=== PATIENT | male | born 1950 | race Caucasian/White ===

== ENCOUNTER 2018-03-26 08:15 | Outpatient (RCR) | payer MEDICARE, OTHER, SELFPAY | END 2018-04-09 11:31 | LOC: PUL 08:15 | PROVIDERS: PCP Family Medicine; Visit Provider Internal Medicine Critical Care Medicine | DX: J44.9 Chronic obstructive pulmonary disease, unspecified (principal) | CPT/HCPCS: G0424 ==

== ENCOUNTER 2018-05-05 12:47 | Emergency (ER) | payer MEDICARE, OTHER, SELFPAY ==
[2018-05-05] VITALS (8 sets, daily range): BP systolic 105–149; BP diastolic 67–87; PULSE 70–82; RESP 14–20; TEMP 36.8; O2SAT 96–100; BMI 34.9
--- NOTE | 2018-05-05 14:00 | ED.SOB ---
HPI - SOB/Dyspnea General Chief Complaint: Shortness of Breath/Dyspnea Stated Complaint: STATES, FEELS A PAIN IN HIS LUNGS,SOB Time Seen by Provider: 05/05/18 12:59 Source: patient and family Mode of arrival: ambulatory Limitations: no limitations History of Present Illness 68-year-old male with history of surgery with prolonged hospitalization and subsequent PE at our review presents to the emergency department with an odd feeling in his lungs and some pain on his right anterior chest. The pain started suddenly on Saturday when he was working underneath a car and reached for an object. He denies cardiac equivalent such as dizziness, weakness or lightheadedness. After his PE a year ago the patient was on anticoagulants for 3 months. He had an knee surgery in early March and had been on anticoagulation again but stopped that 10 days ago. He denies any fever or chills MD Complaint: cough, pain with inspiration and chest pain Onset (ago): day(s) Context: recent illness, occurred during exertion and trauma/injury Severity: moderate Consistency/Duration: constant Relieving factors: rest Exacerbating factors: movement, coughing, inspiration and deep breaths Known history of: PE Related Data Home Medications Medication Instructions Recorded Confirmed albuterol sulfate 2 puff INHALATION Q4-6H PRN 03/25/18 05/05/18 amlodipine 5 mg PO DAILY 03/25/18 05/05/18 finasteride 5 mg PO DAILY 03/25/18 05/05/18 hydrochlorothiazide 25 mg PO DAILY 03/25/18 05/05/18 lisinopril 10 mg PO DAILY 03/25/18 05/05/18 tiotropium bromide [Spiriva with 1 cap INHALATION DAILY 03/25/18 05/05/18 HandiHaler] aspirin 81 mg PO DAILY 05/05/18 05/05/18 loratadine 10 mg PO DAILY 05/05/18 05/05/18 omeprazole 20 mg PO DAILY 05/05/18 05/05/18 Previous Rx's Medication Instructions Recorded levofloxacin [Levaquin] 750 mg PO Q24H #6 tab 05/05/18 Allergies Allergy/AdvReac Type Severity Reaction Status Date / Time No Known Drug Allergies Allergy Verified 03/25/18 10:51 Review of Systems Review of Systems All systems reviewed & are unremarkable except as noted in HPI and below Constitutional Denies chills, Denies fever(s), Denies lethargy and Denies weakness Eyes Denies change in vision, Denies eye discharge, Denies irritation and Denies loss of vision ENT Ears, Nose, Mouth, and Throat: Denies change in voice, Denies neck pain and Denies sore throat Cardiovascular Denies chest pain, Denies irregular heart rhythm, Denies lightheadedness, Denies palpitations, Denies dyspnea, Denies dyspnea on exertion and Denies orthopnea Respiratory Denies cough, Reports pain on inspiration, Reports pain with cough, Denies dyspnea, Denies dyspnea on exertion and Denies wheezing Gastrointestinal Gastrointestinal: Denies abdominal pain, Denies change in bowel habits, Denies diarrhea, Denies nausea and Denies vomiting Genitourinary Denies hematuria, Denies flank pain, Denies urinary incontinence and Denies urinary urgency Musculoskeletal Denies neck pain Integumentary/Breasts Denies pruritus, Denies erythema, Denies rash and Denies wounds Neurologic Denies confusion, Denies loss of vision and Denies weakness Psychiatric Denies anxiety, Denies confusion, Denies depression, Denies homicidal ideation and Denies suicidal ideation Endocrine Denies palpitations Hematologic/Lymphatic Denies easy bruising Allergic/Immunologic Denies wheezing [facility] Medical History COPD (chronic obstructive pulmonary disease) (Acute) HTN (hypertension) (Acute) SAMUEL (obstructive sleep apnea) (Acute) Pneumonia (Acute) Pulmonary embolism (Acute) Upper respiratory infection (Acute) Surgical History H/O cervical spine surgery (Acute) Hx of tonsillectomy (Acute) Hx of total knee arthroplasty (Acute) Social History household members: spouse Smoking Status: Former smoker Exam Narrative Exam Narrative: 68-year-old male resting comfortably in no obvious distress Initial Vital Signs Initial Vital Signs: Vital Signs Temperature 98.2 F 05/05/18 13:10 Pulse Rate 82 05/05/18 13:10 Respiratory Rate 20 05/05/18 13:10 Blood Pressure 149/79 H 05/05/18 13:10 Pulse Oximetry 97 05/05/18 13:10 Const General: cooperative and well developed Nutritional Appearance: well nourished Orientation: alert, awake, oriented x3 and not confused HENMT Head: normocephalic and atraumatic Ears: external ears normal and TM's normal bilaterally Nose: external nose normal and No nasal discharge Face and sinus: sinuses nontender, face symmetric, no sinus tenderness and No dry mucous membranes Mouth: oral mucosae normal and moist mucous membranes Teeth and gingiva: dentition normal Throat: tonsils normal and uvula midline Eyes General: appearance normal, both eyes and all related structures Eyelids: eyelids normal Conjunctivae: conjunctivae normal Sclera: sclerae normal Pupils: PERRL EOM: EOM intact bilaterally Neck Neck: normal visual inspection, trachea midline, No lymphadenopathy, No midline deformity and No JVD Lymphatic: No lymphedema Chest Chest: tenderness (across R side of chest) Resp Effort & Inspection: normal respiratory effort Auscultation: crackles and diminished lung sounds Cardio Rate: regular rate Rhythm: regular rhythm Heart Sounds: no click, no gallops, no murmurs and no rubs Pulses: normal peripheral pulses Back/Spine/Pelvis Back: No CVA tenderness Cervical Spine: cervical ROM normal and No pain with cervical ROM Thoracic/Lumbar Spine: thoracic and lumbar spine normal to inspection Neuro General: alert, oriented x3, gait normal and no focal motor deficits Speech: speech normal Scores PERC Score Age greater than or equal to 50 years: Yes Heart rate greater than or equal to 100 bpm: No Room Air O2 Sat less than 95%: No Unilateral leg swelling: Yes Hemoptysis: No Recent trauma or surgery: Yes Prior PE or DVT: Yes Hormone Use: No Total PERC Score: 4 Course Orders Ordered: ED Orders 05/05/18 13:17 EKG-12 Lead Stat 05/05/18 13:32 BNP [B Type Natriuretic Peptide] Stat CBC [Complete Blood Count AUTO DIFF] Stat Comprehensive Metabolic Panel Stat PT [Prothrombin Time INR] Stat Troponin with CK Cardiac Panel Stat 05/05/18 14:05 CT angio chest PE protocol Stat Discontinued Medications Sodium Chloride (Normal Saline 0.9%) 500 mls @ 1,000 mls/hr IV BOLUS ONE Stop: 05/05/18 15:49 Last Infusion: 05/05/18 15:51 Dose: 0 mls/hr Admin: 05/05/18 15:21 Dose: 1,000 mls/hr Levofloxacin (Levaquin) 750 mg PO NOW ONE Stop: 05/05/18 17:10 Last Admin: 05/05/18 17:29 Dose: 750 mg Vital Signs - 8 hr 05/05/18 13:10 05/05/18 13:30 05/05/18 14:30 Temperature 98.2 F Pulse Rate 82 72 77 Respiratory Rate 20 14 18 Blood Pressure 149/79 H Blood Pressure [Left Arm] 143/87 H 125/74 H Pulse Oximetry 97 97 97 05/05/18 15:30 05/05/18 16:00 05/05/18 16:30 Temperature Pulse Rate 70 76 71 Respiratory Rate 15 19 20 Blood Pressure Blood Pressure [Left Arm] 124/68 H 123/67 H 118/77 Pulse Oximetry 96 100 97 05/05/18 17:18 05/05/18 17:43 Temperature Pulse Rate 76 78 Respiratory Rate 19 18 Blood Pressure 143/72 H Blood Pressure [Left Arm] 105/87 H Pulse Oximetry 97 100 MDM - SOB/Dyspnea Differential Diagnosis Likely acute exacerbation of chronic obstructive airways disease, congestive heart failure, community acquired pneumonia and pulmonary embolism Medical Records Attestation: I reviewed the patient's medical records. Lab Data Attestation: I reviewed the patient's lab results. Result diagrams: 05/05/18 13:32 05/05/18 13:32 Lab Results 05/05/18 05/05/18 05/05/18 Range/Units 13:32 13:32 13:32 WBC 6.6 (4.5-11.0) X10^3/uL RBC 4.53 (4.5-5.9) X10^6/uL Hgb 14.1 (13.5-17.5) g/dL Hct 41.6 (41-53) % MCV 91.7 (80-100) fL MCH 31.1 (26-34) PG MCHC 33.9 (30-36) % RDW 12.9 (11.6-14.8) % Plt Count 315 (150-400) X10^3/uL Neut % (Auto) 61.2 (50-75) % Lymph % (Auto) 22.9 L (25-40) % Traverse % (Auto) 9.3 (3-14) % Eos % (Auto) 5.5 H (2-4) % Baso % (Auto) 1.1 (0-2) % Neut # (Auto) 4000 (2771-1846) /uL PT 12.6 (10.1-12.7) SECONDS INR 1.2 (0.9-1.3) D-Dimer Cancelled Sodium Cancelled Potassium Cancelled Chloride Cancelled Carbon Dioxide Cancelled BUN Cancelled Creatinine Cancelled Estimated GFR Cancelled BUN/Creatinine Ratio Cancelled Glucose Cancelled Calcium Cancelled Total Bilirubin Cancelled AST Cancelled ALT Cancelled Alkaline Phosphatase Cancelled Total Creatine Kinase (55-170) U/L Troponin I (0.01-0.034) ng/mL B-Natriuretic Peptide (<100) Total Protein Cancelled Albumin Cancelled Globulin Cancelled Albumin/Globulin Ratio Cancelled 05/05/18 05/05/18 05/05/18 Range/Units 13:32 13:32 13:32 WBC (4.5-11.0) X10^3/uL RBC (4.5-5.9) X10^6/uL Hgb (13.5-17.5) g/dL Hct (41-53) % MCV (80-100) fL MCH (26-34) PG MCHC (30-36) % RDW (11.6-14.8) % Plt Count (150-400) X10^3/uL Neut % (Auto) (50-75) % Lymph % (Auto) (25-40) % Traverse % (Auto) (3-14) % Eos % (Auto) (2-4) % Baso % (Auto) (0-2) % Neut # (Auto) (4234-3869) /uL PT (10.1-12.7) SECONDS INR (0.9-1.3) D-Dimer Sodium 140 Potassium 4.0 Chloride 104 Carbon Dioxide 25 BUN 16 Creatinine 0.70 Estimated GFR > 60.0 BUN/Creatinine Ratio 22.9 H Glucose 111 H Calcium 9.0 Total Bilirubin 0.6 AST 37 ALT 38 Alkaline Phosphatase 95 Total Creatine Kinase 179 H (55-170) U/L Troponin I < 0.012 Cancelled (0.01-0.034) ng/mL B-Natriuretic Peptide (<100) Total Protein 7.8 Albumin 4.4 Globulin 3.4 Albumin/Globulin Ratio 1.3 MDM Narrative Medical decision making narrative: Patient with multiple comorbidities requires a large workup. D-dimer not ordered as it is clear a PE study is indicated. EKG is nonischemic and troponin 2 days and is unremarkable ruling out acute CT. Right anterior chest pain is somewhat reproducible to palpation and deep breath suggesting inflammatory process, strain or spasm Discharge Plan Departure Patient Disposition: Home, Self-Care Clinical Impression: Community acquired pneumonia, Chest wall muscle strain Discharge Date/Time: 05/05/18 17:43 Interventions: ED Discharge Assessment Last Done: 05/05/18 17:43 Instructions: DI for Pneumonia -- Adult Activity Restrictions/Additional Instructions: *You have been diagnosed with [ pneumonia and chest wall strain ] *What to do: *Take medications as directed *Follow up with your primary care provider in 2-3 days [and follow up with ortho, urology etc] *Return to ER if you should have [such as] [or] any new, worsening or concerning symptoms Prescriptions: New levofloxacin [Levaquin] 750 mg tablet 750 mg PO Q24H Qty: 6 RF: 0 No Action amlodipine 5 mg Tablet 5 mg PO DAILY RF: 0 lisinopril 10 mg Tablet 10 mg PO DAILY RF: 0 hydrochlorothiazide 25 mg Tablet 25 mg PO DAILY RF: 0 albuterol sulfate 90 mcg/actuation Hfa Aerosol Inhaler 2 puff INHALATION Q4-6H PRN (Reason: COPD) RF: 0 finasteride 5 mg Tablet 5 mg PO DAILY RF: 0 tiotropium bromide [Spiriva with HandiHaler] 18 mcg Capsule, W/Inhalation Device 1 cap INHALATION DAILY RF: 0 aspirin 81 mg tablet,delayed release (DR/EC) 81 mg PO DAILY RF: 0 omeprazole 20 mg capsule,delayed release(DR/EC) 20 mg PO DAILY RF: 0 loratadine 10 mg tablet 10 mg PO DAILY RF: 0
[2018-05-05 14:01] LABS: Add Manual Diff / Slide Review NO; Basophils Percent Auto 1.1 % (0-2); Eosinophils Percent Auto 5.5 % (2-4); Hematocrit 41.6 % (41-53); Hemoglobin 14.1 g/dL (13.5-17.5); Lymphocytes Percent Auto 22.9 % (25-40); Mean Corpuscular HGB Conc 33.9 % (30-36); Mean Corpuscular Hemoglobin 31.1 PG (26-34); Mean Corpuscular Volume 91.7 fL (80-100); Monocytes Percent Auto 9.3 % (3-14); Neutrophils Absolute Auto 4000 /uL (3000-5900); Neutrophils Percent Auto 61.2 % (50-75); Platelet Count 315 X10^3/uL (150-400); Red Blood Cell Count 4.53 X10^6/uL (4.5-5.9); Red Cell Distribution Width 12.9 % (11.6-14.8); White Blood Cell Count 6.6 X10^3/uL (4.5-11.0)
[2018-05-05 14:03] LABS: Alanine Aminotransferase 38 IU/L (21-72); Albumin 4.4 g/dL (3.5-5.0); Albumin Globulin Ratio 1.3 (1.0-2.8); Alkaline Phosphatase 95 U/L (38-126); Aspartate Aminotransferase 37 IU/L (17-59); BUN Creatinine Ratio 22.9 (6-22); Bilirubin Total 0.6 mg/dL (0.2-1.3); Blood Urea Nitrogen 16 mg/dL (9-20); Carbon Dioxide 25 mmol/L (22-32); Chloride 104 mmol/L (98-107); Creatine Kinase 179 U/L (55-170); Estimated Glomerular Filt Rate > 60.0 mL/min (>60); Globulin 3.4 g/dL (1.7-4.1); Glucose 111 mg/dL (80-110); HEMOLYSIS 17 (0-50); Sodium 140 mmol/L (137-145); Total Protein 7.8 g/dL (6.3-8.2)
--- NOTE | 2018-05-05 14:05 | DI.CT.S_ITS ---
PROCEDURE: CT ANGIO CHEST PE PROTOCOL INDICATIONS: CP, SOB, hx PE, recent knee surgery, no anticoagulation TECHNIQUE: After the administration of intravenous contrast, 2 mm thick sections acquired from the pulmonary apices to the posterior costophrenic angles. 3-dimensional maximum intensity projection (MIP) coronal and sagittal reformats were then acquired through the thorax. For radiation dose reduction, the following was used: automated exposure control, adjustment of mA and/or kV according to patient size. COMPARISON: [facility], CT, CT NECK CHEST ABD PELVIS W CON, 05/14/2016, 14:38. FINDINGS: Image quality: Excellent. Pulmonary arteries: Pulmonary arteries are normal in size, and demonstrate no intraluminal filling defects to suggest central pulmonary embolism. Lungs and pleura: There is no airspace disease identified within the bilateral lung bases (right slightly greater than left) with corresponding bronchial wall thickening within the bilateral lower lobes. No effusion or pneumothorax is evident. There may be areas of early centrilobular emphysema within the right upper lobe. There is no lung mass. No definitive pulmonary nodules are appreciated. Mediastinum: Heart size is normal, without pericardial effusion. No mediastinal or hilar adenopathy. Coronary artery atherosclerosis is present. Thoracic aorta is normal in caliber and enhancement. Esophagus is normal in caliber, with a small hiatal hernia. Bones and chest wall: No suspicious bony lesions. Ribs and thoracic spine appear intact throughout. Multiple healed left-sided rib fractures are evident. Moderate multilevel degenerative changes of the imaged spine are present, suggesting diffuse idiopathic skeletal hyperostosis. Thyroid gland is grossly unremarkable. No axillary or supraclavicular adenopathy. Abdomen: The included portions of the upper abdomen demonstrates a left hepatic system which is unchanged. There is questionable nodularity to the surface of the liver. Parapelvic cysts appear to be present on the kidneys. Areas of colonic diverticulosis are noted. IMPRESSION: 1. No pulmonary emboli. 2. Mild bibasilar airspace disease is suspicious for pneumonia and bronchitis. 3. Small hiatal hernia. 4. Coronary artery atherosclerosis. Dictated by: Alok Jimenez M.D. on 05/05/2018 at 13:23 Approved by: Alok Jimenez M.D. on 05/05/2018 at 13:27
[2018-05-05 14:17] LABS: Troponin I < 0.012 ng/mL (0.01-0.034)
[2018-05-05 14:38] LABS: INR 1.2 (0.9-1.3); Prothrombin Time 12.6 SECONDS (10.1-12.7)
[2018-05-05] MEDS: SODIUM CHLORIDE 0.9% 500 ML 1000 ML IV (15:21)
[2018-05-05] MEDS: levoFLOXacin 250 MG TABLET 750 MG PO (17:29)
== END 2018-05-05 17:43 | disposition home or self-care (01) ==
PROVIDERS: Emergency Provider Emergency Medicine; PCP Family Medicine
DX: J18.9 Pneumonia, unspecified organism (principal); S29.011A Strain of muscle and tendon of front wall of thorax, initial encounter
CPT/HCPCS: 71275; 80053; 82550; 82553; 83880; 84484; 85025; 85610; 93005; 93041; 99284; 99285

== ENCOUNTER 2018-05-12 11:50 | Emergency (ER) | payer MEDICARE, OTHER, SELFPAY ==
[2018-05-12 12:03] VITALS: BP 144/80; PULSE 80; RESP 16; TEMP 36.4; O2SAT 97
--- NOTE | 2018-05-12 12:07 | DI.RAD.S_ITS ---
PROCEDURE: XR CHEST 2V INDICATIONS: pneumonia last week, not better TECHNIQUE: 2 views of the chest were acquired. COMPARISON: [facility], CR, XR CHEST 2VW, 01/30/2016, 14:30. [facility], CT, CT ANGIO CHEST PE PROTOCOL, 05/05/2018, 14:06. FINDINGS: Surgical changes and devices: Surgical fusion lower cervical spine.. Lungs and pleura: No pleural effusions or pneumothorax. Atelectasis/consolidation is present in the right lung base compatible with lower lobe pneumonia. Mediastinum: Mediastinal contours are normal. Heart size is normal. Bones and chest wall: No suspicious bony abnormalities. Ankylosing type thoracic spondylosis. Old healed left rib fractures. Soft tissues appear unremarkable. IMPRESSION: 1. Appearances consistent with right lower lobe pneumonia. 2. DISH Dictated by: Stanton Alvarez M.D. on 05/12/2018 at 12:44 Approved by: Stanton Alvarez M.D. on 05/12/2018 at 12:46
--- NOTE | 2018-05-12 12:12 | ED.SOB ---
HPI - SOB/Dyspnea General Chief Complaint: Shortness of Breath/Dyspnea Stated Complaint: SAYS PAINS IN HIS LUNGS Time Seen by Provider: 05/12/18 12:11 Source: patient Mode of arrival: ambulatory Limitations: no limitations History of Present Illness 68-year-old male with a history of hypertension, pulmonary embolus 1 year ago not on anticoagulation currently, GERD, seasonal allergies, and COPD returns after 1 week with unresolved symptoms of strange chest discomfort that he has a hard time describing. He states that it hurts worse with deep breathing and at the end of exhalation in the base of his lungs bilaterally. He just completed a course of Levaquin without improvement of his symptoms. Symptoms did improve somewhat with an Advil p.m. as he was having difficulty sleeping. He had a CT angiogram for pulmonary embolus 1 week ago when he was evaluated here with the same symptoms which did not demonstrate a pulmonary embolus but did show pneumonia. He did not have an elevated white blood cell count and was not having fevers or chills. He has had a recent surgery about 1 month ago and was on Lovenox when she just finished. He has no leg swelling. His shortness of breath is no different than his baseline COPD shortness of breath. Related Data Home Medications Medication Instructions Recorded Confirmed albuterol sulfate 2 puff INHALATION Q4-6H PRN 03/25/18 05/12/18 amlodipine 5 mg PO DAILY 03/25/18 05/12/18 finasteride 5 mg PO DAILY 03/25/18 05/12/18 hydrochlorothiazide 25 mg PO DAILY 03/25/18 05/12/18 lisinopril 10 mg PO DAILY 03/25/18 05/12/18 tiotropium bromide [Spiriva with 1 cap INHALATION DAILY 03/25/18 05/12/18 HandiHaler] aspirin 81 mg PO DAILY 05/05/18 05/12/18 loratadine 10 mg PO DAILY 05/05/18 05/12/18 omeprazole 20 mg PO DAILY 05/05/18 05/12/18 Previous Rx's Medication Instructions Recorded prednisone 40 mg PO DAILY #10 tab 05/12/18 Allergies Allergy/AdvReac Type Severity Reaction Status Date / Time No Known Drug Allergies Allergy Verified 03/25/18 10:51 Review of Systems Review of Systems All systems reviewed & are unremarkable except as noted in HPI and below Constitutional Denies chills, Denies fever(s), Denies lethargy and Denies weakness Eyes Denies change in vision, Denies eye discharge, Denies irritation and Denies loss of vision ENT Ears, Nose, Mouth, and Throat: Denies change in voice, Denies neck pain and Denies sore throat Cardiovascular Reports chest pain (3/10 discomfort), Denies irregular heart rhythm, Denies lightheadedness, Denies palpitations, Denies dyspnea, Denies dyspnea on exertion and Denies orthopnea Respiratory Denies cough, Denies hemoptysis, Reports pain on inspiration, Denies dyspnea, Denies dyspnea on exertion, Denies stridor and Denies wheezing Gastrointestinal Gastrointestinal: Denies abdominal pain, Denies change in bowel habits, Denies diarrhea, Denies nausea and Denies vomiting Genitourinary Denies hematuria, Denies flank pain, Denies urinary incontinence and Denies urinary urgency Musculoskeletal Denies neck pain Integumentary/Breasts Denies pruritus, Denies erythema, Denies rash and Denies wounds Neurologic Denies confusion, Denies loss of vision and Denies weakness Psychiatric Denies anxiety, Denies confusion, Denies depression, Denies homicidal ideation and Denies suicidal ideation Endocrine Denies palpitations Hematologic/Lymphatic Denies easy bruising Allergic/Immunologic Denies wheezing PFSH Surgical History H/O cervical spine surgery (Acute) Hx of tonsillectomy (Acute) Hx of total knee arthroplasty (Acute) Social History household members: spouse Smoking Status: Former smoker Exam Initial Vital Signs Initial Vital Signs: Vital Signs Temperature 97.5 F L 05/12/18 12:03 Pulse Rate 80 05/12/18 12:03 Respiratory Rate 16 05/12/18 12:03 Blood Pressure 144/80 H 05/12/18 12:03 Pulse Oximetry 97 05/12/18 12:03 Const General: cooperative and well developed Nutritional Appearance: well nourished Orientation: alert, awake, oriented x3 and not confused HENPA Head: normocephalic and atraumatic Ears: external ears normal and TM's normal bilaterally Nose: external nose normal and No nasal discharge Face and sinus: sinuses nontender, face symmetric, no sinus tenderness and No dry mucous membranes Mouth: oral mucosae normal and moist mucous membranes Teeth and gingiva: dentition normal Throat: tonsils normal and uvula midline Eyes General: appearance normal, both eyes and all related structures Eyelids: eyelids normal Conjunctivae: conjunctivae normal Sclera: sclerae normal Pupils: PERRL EOM: EOM intact bilaterally Neck Neck: normal visual inspection, trachea midline, No lymphadenopathy, No midline deformity and No JVD Lymphatic: No lymphedema Chest Chest: normal inspection of the chest Resp Effort & Inspection: normal respiratory effort, able to speak in complete sentences, no respiratory distress and no use of accessory muscles Auscultation: clear to auscultation bilaterally, no rales, no rhonchi and no wheezes Cardio Rate: regular rate Rhythm: regular rhythm Heart Sounds: no click, no gallops, no murmurs and no rubs Pulses: normal peripheral pulses GI Inspection: non-distended Palpation: soft, no hepatosplenomegaly, No guarding, No pulsatile mass and No tender Auscultation: normal bowel sounds Back/Spine/Pelvis Back: No CVA tenderness Cervical Spine: cervical ROM normal and No pain with cervical ROM Thoracic/Lumbar Spine: thoracic and lumbar spine normal to inspection Skin General: no rashes or lesions noted, No jaundice and No petechiae Neuro General: alert, oriented x3, gait normal and no focal motor deficits Speech: speech normal Extrem General: full ROM, no clubbing, cyanosis or edema, no pedal edema and no calf tenderness Psych Appearance: well kempt Mental Status: mental status grossly normal Attitude: cooperative Thought Content: normal and suicidality Judgment: judgment good Course Orders Ordered: ED Orders 05/12/18 12:07 Chest [XR chest 2V] Stat 05/12/18 12:30 EKG-12 Lead Stat 05/12/18 12:45 Complete Blood Count AUTO DIFF Stat Comprehensive Metabolic Panel Stat Magnesium Stat Troponin I Stat Discontinued Medications Ketorolac Tromethamine (Toradol) 30 mg IM NOW ONE Stop: 05/12/18 12:34 Last Admin: 05/12/18 12:52 Dose: Ketorolac Tromethamine (Toradol) 30 mg IV NOW ONE Stop: 05/12/18 12:49 Last Admin: 05/12/18 12:51 Dose: 30 mg Reevaluation(s) Reevaluation #1: Discuss lab work, x-ray, EKG, and vital signs with patient. Patient's symptoms have improved with Toradol. Advised he start on a course of steroids and use NSAIDs for refractory symptoms. Follow up with PCP advised. Time: 13:39 Vital Signs - 8 hr 05/12/18 12:03 05/12/18 12:31 05/12/18 13:09 Temperature 97.5 F L Pulse Rate 80 74 79 Respiratory Rate 16 12 18 Blood Pressure 144/80 H Blood Pressure [Right Arm] 130/86 H 134/86 H Pulse Oximetry 97 99 97 MDM - SOB/Dyspnea Differential Diagnosis Likely acute exacerbation of chronic obstructive airways disease, congestive heart failure, community acquired pneumonia, asthma with exacerbation and pulmonary embolism Medical Records Attestation: I reviewed the patient's medical records. Lab Data Attestation: I reviewed the patient's lab results. Result diagrams: 05/12/18 12:45 05/12/18 12:45 Lab Results 05/12/18 05/12/18 Range/Units 12:45 12:45 WBC 6.9 (4.5-11.0) X10^3/uL RBC 4.63 (4.5-5.9) X10^6/uL Hgb 14.6 (13.5-17.5) g/dL Hct 42.5 (41-53) % MCV 91.8 (80-100) fL MCH 31.5 (26-34) PG MCHC 34.3 (30-36) % RDW 12.9 (11.6-14.8) % Plt Count 315 (150-400) X10^3/uL Neut % (Auto) 64.2 (50-75) % Lymph % (Auto) 20.8 L (25-40) % [place] % (Auto) 9.0 (3-14) % Eos % (Auto) 4.8 H (2-4) % Baso % (Auto) 1.2 (0-2) % Neut # (Auto) 4400 (4020-1736) /uL Sodium 138 (137-145) mmol/L Potassium 4.2 (3.4-5.1) mmol/L Chloride 100 (98-107) mmol/L Carbon Dioxide 25 (22-32) mmol/L BUN 15 (9-20) mg/dL Creatinine 0.70 (0.66-1.25) mg/dL Estimated GFR > 60.0 (>60) mL/min BUN/Creatinine Ratio 21.4 (6-22) Glucose 97 (80-110) mg/dL Calcium 9.2 (8.4-10.2) mg/dL Magnesium 2.0 (1.6-2.3) mg/dL Total Bilirubin 0.6 (0.2-1.3) mg/dL AST 30 (17-59) IU/L ALT 33 (21-72) IU/L Alkaline Phosphatase 103 (38-126) U/L Troponin I < 0.012 (0.01-0.034) ng/mL Total Protein 8.0 (6.3-8.2) g/dL Albumin 4.6 (3.5-5.0) g/dL Globulin 3.4 (1.7-4.1) g/dL Albumin/Globulin Ratio 1.4 (1.0-2.8) Imaging Data Chest x-ray: Radiologist's impression: PROCEDURE: XR CHEST 2V INDICATIONS: pneumonia last week, not better TECHNIQUE: 2 views of the chest were acquired. COMPARISON: [facility], CR, XR CHEST 2VW, 01/30/2016, 14:30. [facility], CT, CT ANGIO CHEST PE PROTOCOL, 05/05/2018, 14:06. FINDINGS: Surgical changes and devices: Surgical fusion lower cervical spine.. Lungs and pleura: No pleural effusions or pneumothorax. Atelectasis/consolidation is present in the right lung base compatible with lower lobe pneumonia. Mediastinum: Mediastinal contours are normal. Heart size is normal. Bones and chest wall: No suspicious bony abnormalities. Ankylosing type thoracic spondylosis. Old healed left rib fractures. Soft tissues appear unremarkable. IMPRESSION: 1. Appearances consistent with right lower lobe pneumonia. 2. DISH Dictated by: Stanton Alvarez M.D. on 05/12/2018 at 12:44 Approved by: Stanton Alvarez M.D. on 05/12/2018 at 12:46 ECG Data Attestation: I personally reviewed and interpreted this ECG as follows: Prior ECG tracings: available for review Interpretation: EKG performed at 12:43 p.m. shows sinus rhythm with a rate of 70. Normal EKG. No ST/T-wave abnormalities noted. No ischemia. MDM Narrative Medical decision making narrative: Patient with a history of pneumonia and pulmonary embolus presenting for pleuritic chest pain that has been ongoing since his diagnosis of pneumonia. He took the antibiotics as prescribed and has not felt much better. Chest x-ray today re- demonstrates pneumonia, although we would not expect radiographic improvement for 4-6 weeks after infection. EKG and troponin are negative here. He is not tachycardic or hypoxic on room air. His symptoms have not worsened since the past week when he had a CT chest for pulmonary embolus which returned negative. He has no SIRS criteria today. Symptoms improved with Toradol. He was prescribed a short course of prednisone 40 mg daily for 5 days and advised to take NSAIDs for refractory pain. Follow up with PCP within the upcoming week. Patient understands and agrees with the plan. He will return for worsening symptoms. Of note he tells me that his symptoms feel much different than when he had a pulmonary embolus 1 year ago. Discharge Plan Departure Patient Disposition: Home, Self-Care Clinical Impression: Pleurisy Instructions: DI for Pleurisy Activity Restrictions/Additional Instructions: Thank you for trusting as with your care today. No dangerous findings were noted in your evaluation. I believe your symptoms are related to pleurisy or inflammation of the lung lining. Please take the prednisone as prescribed and use anti-inflammatories as needed for pain. Follow up with your primary care provider within 1 week for a re-evaluation. Return to the ER for new or worsening symptoms. It appears that your pneumonia has been appropriately treated. Prescriptions: New prednisone 20 mg tablet 40 mg PO DAILY Qty: 10 RF: 0 No Action amlodipine 5 mg Tablet 5 mg PO DAILY RF: 0 lisinopril 10 mg Tablet 10 mg PO DAILY RF: 0 hydrochlorothiazide 25 mg Tablet 25 mg PO DAILY RF: 0 albuterol sulfate 90 mcg/actuation Hfa Aerosol Inhaler 2 puff INHALATION Q4-6H PRN (Reason: COPD) RF: 0 finasteride 5 mg Tablet 5 mg PO DAILY RF: 0 tiotropium bromide [Spiriva with HandiHaler] 18 mcg Capsule, W/Inhalation Device 1 cap INHALATION DAILY RF: 0 aspirin 81 mg tablet,delayed release (DR/EC) 81 mg PO DAILY RF: 0 omeprazole 20 mg capsule,delayed release(DR/EC) 20 mg PO DAILY RF: 0 loratadine 10 mg tablet 10 mg PO DAILY RF: 0
[2018-05-12 12:31] VITALS: BP 130/86; PULSE 74; RESP 12; O2SAT 99
[2018-05-12] MEDS: KETOROLAC 60 MG/2 ML VIAL 30 MG IV (12:51)
[2018-05-12 12:52] LABS: Add Manual Diff / Slide Review NO; Basophils Percent Auto 1.2 % (0-2); Eosinophils Percent Auto 4.8 % (2-4); Hematocrit 42.5 % (41-53); Hemoglobin 14.6 g/dL (13.5-17.5); Lymphocytes Percent Auto 20.8 % (25-40); Mean Corpuscular HGB Conc 34.3 % (30-36); Mean Corpuscular Hemoglobin 31.5 PG (26-34); Mean Corpuscular Volume 91.8 fL (80-100); Neutrophils Absolute Auto 4400 /uL (3000-5900); Neutrophils Percent Auto 64.2 % (50-75); Platelet Count 315 X10^3/uL (150-400); Red Blood Cell Count 4.63 X10^6/uL (4.5-5.9); Red Cell Distribution Width 12.9 % (11.6-14.8); White Blood Cell Count 6.9 X10^3/uL (4.5-11.0)
[2018-05-12 13:04] LABS: Alanine Aminotransferase 33 IU/L (21-72); Albumin 4.6 g/dL (3.5-5.0); Albumin Globulin Ratio 1.4 (1.0-2.8); Alkaline Phosphatase 103 U/L (38-126); Aspartate Aminotransferase 30 IU/L (17-59); BUN Creatinine Ratio 21.4 (6-22); Bilirubin Total 0.6 mg/dL (0.2-1.3); Blood Urea Nitrogen 15 mg/dL (9-20); Calcium 9.2 mg/dL (8.4-10.2); Carbon Dioxide 25 mmol/L (22-32); Chloride 100 mmol/L (98-107); Estimated Glomerular Filt Rate > 60.0 mL/min (>60); Globulin 3.4 g/dL (1.7-4.1); Glucose 97 mg/dL (80-110); HEMOLYSIS < 15 (0-50); Potassium 4.2 mmol/L (3.4-5.1); Sodium 138 mmol/L (137-145)
[2018-05-12 13:09] VITALS: BP 134/86; PULSE 79; RESP 18; O2SAT 97
[2018-05-12 13:18] LABS: Troponin I < 0.012 ng/mL (0.01-0.034)
[2018-05-12 13:51] VITALS: BP 131/82; PULSE 83; RESP 18; O2SAT 97
== END 2018-05-12 13:56 | disposition home or self-care (01) ==
PROVIDERS: Emergency Provider Emergency Medicine; PCP Family Medicine
DX: R09.1 Pleurisy (principal); Z87.891 Personal history of nicotine dependence
CPT/HCPCS: 36591; 71046; 80053; 83735; 84484; 85025; 93005; 96374; 99283; 99285; J1885

== ENCOUNTER 2018-05-17 21:35 | Emergency (ER) | payer MEDICARE, OTHER, SELFPAY ==
[2018-05-17 21:38] VITALS: BP 149/88; PULSE 82; RESP 20; TEMP 36.2; O2SAT 97; BMI 34.9
--- NOTE | 2018-05-17 22:16 | DI.RAD.S_ITS ---
PROCEDURE: XR CHEST 2V INDICATIONS: pain recent pneumonia TECHNIQUE: 2 views of the chest were acquired. COMPARISON: [facility], CR, XR CHEST 2VW, 01/30/2016, 14:30. [facility], CR, XR CHEST 2V, 05/12/2018, 12:09. FINDINGS: Surgical changes and devices: Postsurgical changes in the lower cervical spine. Lungs and pleura: Bibasilar opacities are unchanged, compatible with scars or atelectasis. No pleural effusions or pneumothorax. Mediastinum: Mediastinal contours are normal. Heart size is normal. Bones and chest wall: No suspicious bony abnormalities. Soft tissues appear unremarkable. IMPRESSION: Bibasilar scars or atelectasis. Dictated by: Gabe Steward M.D. on 05/18/2018 at 7:20 Approved by: Gabe Steward M.D. on 05/18/2018 at 7:22
--- NOTE | 2018-05-17 22:21 | ED_ITS ---
HPI - SOB/Dyspnea General Chief Complaint: Shortness of Breath/Dyspnea Stated Complaint: LUNG PAIN SOB Time Seen by Provider: 05/17/18 21:58 Source: patient, family and old records reviewed Mode of arrival: ambulatory Limitations: no limitations History of Present Illness Patient is a 68-year-old male who presents with all painful breathing. He has been seen here twice over 2 weeks initially diagnosed on with pneumonia, with a negative PE workup. He was seen again a week later, x-ray still showed pneumonia, but likely had not cleared from the initial infection, diagnosed with pleurisy and treated with prednisone. He finished prednisone yesterday. He says throughout the day today he is having more increased pain. He feels like it every time he moves or breathes it is both sides of his lungs. He does not have shortness of breath on no longer has body aches. He still has some productive cough but is clear phlegm. He denies any relief for exacerbation if he leans forward. If he lies down the pain is significantly increased when he sits up the pain remains on the bottom half of his lungs but still hurts every time he breathes. MD Complaint: pain with inspiration Onset (ago): week(s) Context: recent illness Severity: moderate Consistency/Duration: constant Relieving factors: nothing Exacerbating factors: movement, coughing and inspiration Related Data Home Medications Medication Instructions Recorded Confirmed albuterol sulfate 2 puff INHALATION Q4-6H PRN 03/25/18 05/12/18 amlodipine 5 mg PO DAILY 03/25/18 05/12/18 finasteride 5 mg PO DAILY 03/25/18 05/12/18 hydrochlorothiazide 25 mg PO DAILY 03/25/18 05/12/18 lisinopril 10 mg PO DAILY 03/25/18 05/12/18 tiotropium bromide [Spiriva with 1 cap INHALATION DAILY 03/25/18 05/12/18 HandiHaler] aspirin 81 mg PO DAILY 05/05/18 05/12/18 loratadine 10 mg PO DAILY 05/05/18 05/12/18 omeprazole 20 mg PO DAILY 05/05/18 05/12/18 Previous Rx's Medication Instructions Recorded prednisone 40 mg PO DAILY #10 tab 05/12/18 naproxen [Naprosyn] 500 mg PO Q12H PRN #30 tab 05/17/18 Allergies Allergy/AdvReac Type Severity Reaction Status Date / Time No Known Drug Allergies Allergy Verified 03/25/18 10:51 Review of Systems Review of Systems All systems reviewed & are unremarkable except as noted in HPI and below Constitutional Denies chills, Denies fever(s), Denies lethargy and Denies weakness Cardiovascular Denies chest pain, Denies irregular heart rhythm, Denies lightheadedness, Denies palpitations and Denies orthopnea Respiratory Reports as per HPI Gastrointestinal Gastrointestinal: Denies abdominal pain, Denies change in bowel habits, Denies diarrhea, Denies nausea and Denies vomiting Musculoskeletal Denies back pain, Denies muscle weakness, Denies numbness and Denies tingling Integumentary/Breasts Denies pruritus, Denies erythema, Denies rash and Denies wounds Neurologic Denies numbness, Denies tingling and Denies weakness Endocrine Denies palpitations PFSH Surgical History H/O cervical spine surgery (Acute) Hx of tonsillectomy (Acute) Hx of total knee arthroplasty (Acute) Social History household members: spouse Smoking Status: Former smoker Exam Initial Vital Signs Initial Vital Signs: Vital Signs Temperature 97.1 F L 05/17/18 21:38 Pulse Rate 82 05/17/18 21:38 Respiratory Rate 20 05/17/18 21:38 Blood Pressure 149/88 H 05/17/18 21:38 Pulse Oximetry 97 05/17/18 21:38 Const General: cooperative, healthy appearing and in distress (in pain) Neck Neck: normal visual inspection and full ROM Chest Chest: normal inspection of the chest, normal palpation of entire chest wall, No crepitus, No localized rib tenderness with anteroposterior compression and No tenderness Resp Effort & Inspection: normal respiratory effort Auscultation: clear to auscultation bilaterally and no rubs Tactile Fremitus: tactile fremitus absent Cardio Palpation: normal PMI Rate: regular rate Rhythm: regular rhythm Heart Sounds: S1 normal, S2 normal and no rubs GI Inspection: non-distended Palpation: soft, no hepatosplenomegaly, No guarding, No pulsatile mass and No tender Auscultation: normal bowel sounds Skin General: no rashes or lesions noted, No jaundice and No petechiae Neuro General: alert, awake and oriented x3 Speech: speech normal Gait: normal gait Course Orders Ordered: ED Orders 05/17/18 22:15 Consult to Respiratory Therapy Evaluate & Treat 05/17/18 22:16 XR chest 2V Stat 05/17/18 22:38 B Type Natriuretic Peptide Stat Complete Blood Count AUTO DIFF Stat Comprehensive Metabolic Panel Stat Lactate (Lactic Acid) Stat Partial Thromboplastin Time Stat Procalcitonin Stat Prothrombin Time INR Stat Troponin with CK Cardiac Panel Stat Discontinued Medications Ketorolac Tromethamine (Toradol) 30 mg IV NOW ONE Stop: 05/17/18 22:14 Last Admin: 05/17/18 22:38 Dose: 30 mg Vital Signs - 8 hr 05/17/18 21:38 05/17/18 22:30 05/17/18 23:53 Temperature 97.1 F L 97.7 F Pulse Rate 82 73 73 Respiratory Rate 20 18 10 L Blood Pressure 149/88 H 128/70 H Blood Pressure [Right Arm] 131/78 H Pulse Oximetry 97 96 95 MDM - SOB/Dyspnea Differential Diagnosis Likely pulmonary embolism and other (Pleurisy, pericarditis, pleural effusion, acute coronary syndrome, PE) Lab Data Result diagrams: 05/17/18 22:38 05/17/18 22:38 Lab Results 05/17/18 05/17/18 05/17/18 Range/Units 22:38 22:38 22:38 WBC 8.6 (4.5-11.0) X10^3/uL RBC 4.73 (4.5-5.9) X10^6/uL Hgb 14.8 (13.5-17.5) g/dL Hct 43.5 (41-53) % MCV 92.0 (80-100) fL MCH 31.3 (26-34) PG MCHC 34.1 (30-36) % RDW 13.0 (11.6-14.8) % Plt Count 332 (150-400) X10^3/uL Neut % (Auto) 55.3 (50-75) % Lymph % (Auto) 30.8 (25-40) % [place] % (Auto) 9.1 (3-14) % Eos % (Auto) 4.0 (2-4) % Baso % (Auto) 0.8 (0-2) % Neut # (Auto) 4800 (4273-4150) /uL PT 11.4 (10.1-12.7) SECONDS INR 1.1 (0.9-1.3) APTT 25 L (26.4-36.2) SECONDS Sodium 141 (137-145) mmol/L Potassium 3.8 (3.4-5.1) mmol/L Chloride 101 (98-107) mmol/L Carbon Dioxide 27 (22-32) mmol/L BUN 21 H (9-20) mg/dL Creatinine 0.80 (0.66-1.25) mg/dL Estimated GFR > 60.0 (>60) mL/min BUN/Creatinine Ratio 26.3 H (6-22) Glucose 98 (80-110) mg/dL Lactate (0.7-2.1) mmol/L Calcium 9.1 (8.4-10.2) mg/dL Total Bilirubin 0.3 (0.2-1.3) mg/dL AST 28 (17-59) IU/L ALT 47 (21-72) IU/L Alkaline Phosphatase 92 (38-126) U/L Total Creatine Kinase 58 (55-170) U/L Troponin I < 0.012 (0.01-0.034) ng/mL B-Natriuretic Peptide < 100.0 (<100) Total Protein 7.4 (6.3-8.2) g/dL Albumin 4.2 (3.5-5.0) g/dL Globulin 3.2 (1.7-4.1) g/dL Albumin/Globulin Ratio 1.3 (1.0-2.8) Procalcitonin (<0.5) ng/mL 05/17/18 05/17/18 Range/Units 22:38 22:38 WBC (4.5-11.0) X10^3/uL RBC (4.5-5.9) X10^6/uL Hgb (13.5-17.5) g/dL Hct (41-53) % MCV (80-100) fL MCH (26-34) PG MCHC (30-36) % RDW (11.6-14.8) % Plt Count (150-400) X10^3/uL Neut % (Auto) (50-75) % Lymph % (Auto) (25-40) % [place] % (Auto) (3-14) % Eos % (Auto) (2-4) % Baso % (Auto) (0-2) % Neut # (Auto) (1957-3801) /uL PT (10.1-12.7) SECONDS INR (0.9-1.3) APTT (26.4-36.2) SECONDS Sodium (137-145) mmol/L Potassium (3.4-5.1) mmol/L Chloride (98-107) mmol/L Carbon Dioxide (22-32) mmol/L BUN (9-20) mg/dL Creatinine (0.66-1.25) mg/dL Estimated GFR (>60) mL/min BUN/Creatinine Ratio (6-22) Glucose (80-110) mg/dL Lactate 0.8 (0.7-2.1) mmol/L Calcium (8.4-10.2) mg/dL Total Bilirubin (0.2-1.3) mg/dL AST (17-59) IU/L ALT (21-72) IU/L Alkaline Phosphatase (38-126) U/L Total Creatine Kinase (55-170) U/L Troponin I (0.01-0.034) ng/mL B-Natriuretic Peptide (<100) Total Protein (6.3-8.2) g/dL Albumin (3.5-5.0) g/dL Globulin (1.7-4.1) g/dL Albumin/Globulin Ratio (1.0-2.8) Procalcitonin < 0.05 (<0.5) ng/mL Imaging Data Chest x-ray: Attestation: I personally reviewed and interpreted this imaging study as follows: My impression: No acute process, cardiomegaly, similar to previous x-ray ECG Data Attestation: I personally reviewed and interpreted this ECG as follows: Prior ECG tracings: available for review Interpretation: Sinus rhythm rate 68 low voltage no acute ST changes similar to all previous EKGs MDM Narrative Medical decision making narrative: Bedside ultrasound done by myself does not reveal any pericardial effusion. Patient recently had pneumonia he was treated with 1 course of antibiotics and 5 days of prednisone after. His symptoms are worse with movement and deep breathing. Consistent with pleurisy, likely from the initial pneumonia. He had a PE scan 2 weeks ago which was negative. He is not hypoxic. Symptoms have significantly improved after Toradol. At this time was treat with NSAIDs and follow up with primary care provider. Discharge Plan Departure Patient Disposition: Home, Self-Care Clinical Impression: Pleurisy Discharge Date/Time: 05/17/18 23:54 Interventions: ED Discharge Assessment Last Done: 05/17/18 23:53 Instructions: DI for Pleurisy Activity Restrictions/Additional Instructions: *You have been diagnosed with pleurisy, likely caused from the pneumonia which seems to be resolved *What to do: Inflammation of the lining of the lung, this may take some time to resolve. Anti-inflammatories will help *Continue to take medications as directed -naproxen 500 mg twice a day with food for 1 week then stop- this has been faxed to the pharmacy and [facility] *Follow up with your primary care provider in 2-3 days *Return to ER if you should have increasing pain, shortness of breath or any new , worsening or concerning symptoms Prescriptions: New naproxen [Naprosyn] 500 mg tablet 500 mg PO Q12H PRN (Reason: pain) Qty: 30 RF: 0 No Action amlodipine 5 mg Tablet 5 mg PO DAILY RF: 0 lisinopril 10 mg Tablet 10 mg PO DAILY RF: 0 hydrochlorothiazide 25 mg Tablet 25 mg PO DAILY RF: 0 albuterol sulfate 90 mcg/actuation Hfa Aerosol Inhaler 2 puff INHALATION Q4-6H PRN (Reason: COPD) RF: 0 finasteride 5 mg Tablet 5 mg PO DAILY RF: 0 tiotropium bromide [Spiriva with HandiHaler] 18 mcg Capsule, W/Inhalation Device 1 cap INHALATION DAILY RF: 0 aspirin 81 mg tablet,delayed release (DR/EC) 81 mg PO DAILY RF: 0 omeprazole 20 mg capsule,delayed release(DR/EC) 20 mg PO DAILY RF: 0 loratadine 10 mg tablet 10 mg PO DAILY RF: 0 prednisone 20 mg tablet 40 mg PO DAILY Qty: 10 RF: 0
[2018-05-17 22:30] VITALS: BP 131/78; PULSE 73; RESP 18; O2SAT 96
[2018-05-17] MEDS: KETOROLAC 60 MG/2 ML VIAL 30 MG IV (22:38)
[2018-05-17 22:43] LABS: Add Manual Diff / Slide Review NO; Basophils Percent Auto 0.8 % (0-2); Hematocrit 43.5 % (41-53); Hemoglobin 14.8 g/dL (13.5-17.5); Lymphocytes Percent Auto 30.8 % (25-40); Mean Corpuscular HGB Conc 34.1 % (30-36); Mean Corpuscular Hemoglobin 31.3 PG (26-34); Monocytes Percent Auto 9.1 % (3-14); Neutrophils Absolute Auto 4800 /uL (3000-5900); Neutrophils Percent Auto 55.3 % (50-75); Platelet Count 332 X10^3/uL (150-400); Red Blood Cell Count 4.73 X10^6/uL (4.5-5.9); White Blood Cell Count 8.6 X10^3/uL (4.5-11.0)
[2018-05-17 22:47] LABS: INR 1.1 (0.9-1.3); Prothrombin Time 11.4 SECONDS (10.1-12.7)
[2018-05-17 22:51] LABS: Lactate (Lactic Acid) 0.8 mmol/L (0.7-2.1)
[2018-05-17 23:01] LABS: PTT Partial Thromboplastin Tim 25 SECONDS (26.4-36.2)
[2018-05-17 23:05] LABS: B Type Natriuretic Peptide < 100.0 (<100)
[2018-05-17 23:07] LABS: Alanine Aminotransferase 47 IU/L (21-72); Albumin 4.2 g/dL (3.5-5.0); Albumin Globulin Ratio 1.3 (1.0-2.8); Alkaline Phosphatase 92 U/L (38-126); Aspartate Aminotransferase 28 IU/L (17-59); BUN Creatinine Ratio 26.3 (6-22); Bilirubin Total 0.3 mg/dL (0.2-1.3); Blood Urea Nitrogen 21 mg/dL (9-20); Calcium 9.1 mg/dL (8.4-10.2); Carbon Dioxide 27 mmol/L (22-32); Chloride 101 mmol/L (98-107); Creatine Kinase 58 U/L (55-170); Estimated Glomerular Filt Rate > 60.0 mL/min (>60); Globulin 3.2 g/dL (1.7-4.1); Glucose 98 mg/dL (80-110); HEMOLYSIS < 15 (0-50); Potassium 3.8 mmol/L (3.4-5.1); Sodium 141 mmol/L (137-145); Total Protein 7.4 g/dL (6.3-8.2)
[2018-05-17 23:19] LABS: Troponin I < 0.012 ng/mL (0.01-0.034)
[2018-05-17 23:22] LABS: Procalcitonin < 0.05 ng/mL (<0.5)
[2018-05-17 23:53] VITALS: BP 128/70; PULSE 73; RESP 10; TEMP 36.5; O2SAT 95
== END 2018-05-17 23:54 | disposition home or self-care (01) ==
PROVIDERS: Emergency Provider Emergency Medicine; PCP Family Medicine
DX: R09.1 Pleurisy (principal)
CPT/HCPCS: 36591; 71046; 80053; 82550; 82553; 83605; 83880; 84145; 84484; 85025; 85610; 85730; 93005; 93010; 96374; 99282; 99285; J1885

== ENCOUNTER → 2018-10-23 07:56 | Outpatient (CLI) | payer MEDICARE, OTHER, SELFPAY ==
--- NOTE | 2018-10-23 | DI.CT.S_ITS ---
PROCEDURE: CT CERVICAL SPINE WO CON INDICATIONS: BONE FIBROUS DYSPLASIA TECHNIQUE: Noncontrast 3 mm thick sections acquired from the skull base to the T4 level. Sagittal and coronal reformats were then constructed. For radiation dose reduction, the following was used: automated exposure control, adjustment of mA and/or kV according to patient size. COMPARISON: [facility], , C-SPINE WITHOUT CONTRAST, 04/06/2016, 13:17. FINDINGS: Image quality: Excellent. Bones: Postoperative changes are seen, with posterior pedicle screws at the C4, C5, and T1 levels. The screws appear well placed. Vertical fixation rods are seen. No findings of hardware failure or hardware loosening are seen. The bones are osteopenic. No suspicious marrow abnormalities are detected. There is a degree of vertebral body fusion seen at the C6-C7 and C7-T1 levels. Bridging anterior osteophytes are seen from C5 through the T4 level. Prominent right-sided bridging osteophytes are seen at T4-T5, as on series 4 image 41. Focal degenerative change can also be seen involving the C1-C2 interface anteriorly. Soft tissues: Prevertebral soft tissues are normal in thickness. No paravertebral hematomas. No apical pneumothoraces. IMPRESSION: Unremarkable postoperative change. Dictated by: Christiano Lovett M.D. on 10/23/2018 at 8:18 Approved by: Christiano Lovett M.D. on 10/23/2018 at 8:22
--- NOTE | 2018-10-23 | DI.MRI.S_ITS ---
PROCEDURE: MR CERVICAL SPINE WO/W CON INDICATIONS: BONE FIBROUS DYSPLASIA TECHNIQUE: Noncontrast sagittal T1 spin echo and T2 fast spin echo, sagittal STIR, foraminal oblique sagittal T2 fast spin echo, axial gradient echo or T2 fast spin echo through the cervical spine. After the administration of contrast, axial and sagittal T1 spin echo with fat saturation through the cervical spine. COMPARISON: [facility], MR, C-SPINE WITHOUT CONTRAST, 04/06/2016, 13:17. [facility], CT, CT CERVICAL SPINE WO CON, 10/23/2018, 8:29. FINDINGS: Image quality: Limited by patient motion artifact and poor [id number]. Poor signal noise related to use of body coil for image acquisition. Body coil was utilized secondary to inability to position patient for neck coil usage. Alignment and curvature: There is normal bony alignment. Bones: Postsurgical changes compatible with C4-C7 posterior fusion with bilateral C4, C5 and C7 transpedicular screws and vertical fixation rods. Postsurgical changes compatible with C6 and C7 laminectomies noted. Reactive endplate change is noted adjacent to the C6-C7 and C7-T1 discs. Marrow is without suspicious enhancement. Spinal cord: Visualized spinal cord has normal size and signal. No cerebellar tonsillar herniation. No abnormal intramedullary enhancement. Paraspinous soft tissues: No paravertebral masses or suspicious enhancement. Posterior paraspinous postsurgical scarring noted. C2-3: Loss of disc signal. Mild, diffuse disc bulge. Mild narrowing of the central canal. Moderate bilateral facet hypertrophy. Moderate right and severe left neural foraminal narrowing. C3-4: Loss of disc height. Moderate, diffuse disc bulge. Moderate to severe narrowing of the central canal. Mild right and moderate left facet hypertrophy. Moderate right and severe left neural foraminal narrowing. C4-5: Loss of disc height. Moderate, diffuse disc bulge. Severe narrowing of the central canal with flattening deformity of the cervical spinal cord. Mild to moderate bilateral facet hypertrophy. Mild bilateral uncovertebral joint hypertrophy. Severe bilateral neural foraminal narrowing. C5-6: Loss of disc height. Mild, diffuse disc bulge. No central stenosis. Ajlq-jl-ratiwhvj bilateral facet hypertrophy. Moderate bilateral neural foraminal narrowing. C6-7: Near complete loss of disc substance. No central stenosis. Status post right facetectomy. Phtd-yx-[id number] left facet hypertrophy. Moderate left neural foraminal narrowing. C7-T1: Near-complete loss of disc substance. No central stenosis. Mild left neural foraminal narrowing. IMPRESSION: 1. Postsurgical changes. 2. Multilevel degenerative disc disease. 3. Multilevel facet arthropathy. 4. Severe C4-C5 central canal narrowing. Moderate to severe C3-C4 central canal narrowing. Mild C2-C3 central canal narrowing. 5. Severe bilateral C4-C5 neural foraminal narrowing. Moderate right and severe left C2-C3 and C3-C4 neural foraminal narrowing. Moderate bilateral C5-C6 neural foraminal narrowing. Moderate left C6-C7 neural foraminal narrowing. 6. No suspicious postcontrast enhancement. 7. Image quality severely degraded by patient motion artifact as well as poor [id number] related to use a body coil for image acquisition. Dictated by: Danielle Medel MD, PhD on 10/23/2018 at 15:58 Approved by: Danielle Medel MD, PhD on 10/23/2018 at 16:15
[2018-10-23 08:39] LABS: BUN Creatinine Ratio 22.5 (6-22); Blood Urea Nitrogen 18 mg/dL (9-20); Calcium 9.2 mg/dL (8.4-10.2); Carbon Dioxide 26 mmol/L (22-32); Chloride 102 mmol/L (98-107); Estimated Glomerular Filt Rate > 60.0 mL/min (>60); Glucose 103 mg/dL (80-110); HEMOLYSIS < 15 (0-50); Potassium 3.6 mmol/L (3.4-5.1); Sodium 142 mmol/L (137-145)
== END ==
PROVIDERS: PCP Family Medicine; Visit Provider Neurological Surgery
DX: M50.31 Other cervical disc degeneration, high cervical region (principal); M85.00 Fibrous dysplasia (monostotic), unspecified site; M85.88 Other specified disorders of bone density and structure, other site; M47.812 Spondylosis without myelopathy or radiculopathy, cervical region; M48.02 Spinal stenosis, cervical region; Z98.1 Arthrodesis status
CPT/HCPCS: 36415; 72125; 72156; 80048; A9579

== ENCOUNTER 2019-06-11 11:46 | Day surgery (SDC) | payer MEDICARE, OTHER, SELFPAY ==
[2019-06-11 12:17] VITALS: BMI 27.4
[2019-06-11 12:22] VITALS: BP 118/78; PULSE 71; RESP 18; TEMP 36.7; O2SAT 95
[2019-06-11] MEDS: CATARACT EYE COMPOUND (10 DROPS/SYRINGE) 3 DROPS EYE-OP (12:30)
[2019-06-11] MEDS: PROPARACAINE 0.5% OPHTH SOL 2 DROPS EYE-OP (12:30)
--- NOTE | 2019-06-11 12:54 | PM.PREOP ---
Pre-operative Note Interval Note History & Physical reviewed/Exam performed by Physician: Yes Changes to H&P: No
[2019-06-11] MEDS: MOXIFLOXACIN OPHTH DROPS 3 ML BOTTLE 2 DROPS INJ (13:16)
[2019-06-11] MEDS: PHENYLEPHRINE/LIDOCAINE VIAL (OR) 0.2 ML EYE-OP (13:16)
[2019-06-11] MEDS: TETRACAINE 0.5% OPHTH DROPS 4 ML 2 DROPS EYE-OP (13:17)
[2019-06-11] MEDS: BALANCED SALT IRRIG SOLN NO.2 15 ML 5 ML IRR (13:17)
[2019-06-11] MEDS: BALANCED SALT IRRIG SOLN NO.2 500 ML, EPINEPHrine 1 MG IRR (13:17)
[2019-06-11] MEDS: CHONDROIDTIN/SOD HYALURONATE 1.05 ML SYRINGE INTRAOCULA (13:17)
[2019-06-11] MEDS: LIDOCAINE 2% INJ SDV 0.5 ML TOP (13:18)
--- NOTE | 2019-06-11 13:45 | P.OP_ITS ---
Procedure & Clinicians Procedure: Cataract extraction with intraocular lens implant, right Same procedure as scheduled: Yes Indications: Visually significant cataract age related nuclear sclerosis, right Surgeon: Chiki Stahl Click Yes if Unassisted: Yes Anesthesia Type: MAC +/- Operative Notes Procedure in detail: The patient was brought to the operating suite. The correct patient, surgical site and lens were confirmed. 0.5 % tetracaine drops were placed in the right eye. The patient was prepped and draped in the typical sterile manner. A lid speculum was placed in the eye. 2% lidocaine was placed on the eye. A paracentesis port was created with a side-port blade. 0.1 mL of 1% preservative free lidocaine with phenylephrine injected into the anterior chamber. Viscoelastic was injected into the anterior chamber. A 2.6mm keratome was used to create a clear corneal temporal incision. Cystotome and Utrata force ps were used to create a continuous curvilinear capsulorrhexis. Balanced salt solution was used to hydrodissect the nucleus. Phacoemulsification was used to remove the lens. The capsular bag was inflated with viscoelastic. A Acosta ZBOO +18.5D lens was inserted into the capsule. Viscoelastic was removed and the wound hydrated. The wound was found to be leak free and the eye was assessed to be at normal physiologic pressure. 0.1mL Vigamox was injected into the anterior chamber. The lid speculum was removed and the patient left the operating room in excellent condition. Complications: none Condition: stable Disposition: same day surgery
[2019-06-11 13:50] VITALS: BP 133/77; PULSE 69; RESP 16; TEMP 36; O2SAT 95
== END 2019-06-11 14:04 | disposition home or self-care (01) ==
LOC: OR 11:48
PROVIDERS: PCP Family Medicine; Visit Provider Ophthalmology
PROC: (CPT 66984; principal; 2019-06-11 13:30)
DX: H25.11 Age-related nuclear cataract, right eye (principal); I10 Essential (primary) hypertension; J44.9 Chronic obstructive pulmonary disease, unspecified
CPT/HCPCS: 66984; J0171; J2250; J3010

== ENCOUNTER 2019-07-02 08:12 | Day surgery (SDC) | payer MEDICARE, OTHER, SELFPAY ==
[2019-06-25] MEDS: PROPARACAINE 0.5% OPHTH SOL 2 DROPS EYE-OP (07:46)
[2019-06-25] MEDS: CATARACT EYE COMPOUND (10 DROPS/SYRINGE) 3 DROPS EYE-OP (07:51)
[2019-06-25 07:52] VITALS: BMI 34.2
[2019-06-25 08:00] VITALS: BP 121/75; PULSE 72; RESP 16; TEMP 36.9; O2SAT 94
--- NOTE | 2019-06-25 09:07 | SUR.PREOP ---
Pt surgery cancelled. Iodine cleaned off. IV d/c'd. Pt ambulated independently with glasses.
[2019-07-02] MEDS: PROPARACAINE 0.5% OPHTH SOL 2 DROPS EYE-OP (09:11)
[2019-07-02 09:16] VITALS: BP 138/89; PULSE 70; RESP 16; TEMP 36.7; O2SAT 96
[2019-07-02] MEDS: CATARACT EYE COMPOUND (10 DROPS/SYRINGE) 3 DROPS EYE-OP ×3 (09:23→09:33)
[2019-07-02 09:25] VITALS: BMI 34.2
--- NOTE | 2019-07-02 09:42 | PM.PREOP ---
Pre-operative Note Interval Note History & Physical reviewed/Exam performed by Physician: Yes Changes to H&P: No
[2019-07-02] MEDS: PHENYLEPHRINE/LIDOCAINE VIAL (OR) 0.2 ML EYE-OP (10:09)
[2019-07-02] MEDS: BALANCED SALT IRRIG SOLN NO.2 15 ML 5 ML IRR ×2 (10:09→10:10)
[2019-07-02] MEDS: MOXIFLOXACIN OPHTH DROPS 3 ML BOTTLE 2 DROPS INJ (10:09)
[2019-07-02] MEDS: TETRACAINE 0.5% OPHTH DROPS 15 ML 2 DROPS EYE-LEFT (10:10)
[2019-07-02] MEDS: LIDOCAINE 2% INJ SDV 2 ML INJ (10:10)
[2019-07-02] MEDS: CHONDROIDTIN/SOD HYALURONATE 1.05 ML SYRINGE INTRAOCULA (10:11)
[2019-07-02] MEDS: BALANCED SALT IRRIG SOLN NO.2 500 ML, EPINEPHrine 1 MG IRR (10:11)
--- NOTE | 2019-07-02 10:44 | P.OP_ITS ---
Procedure & Clinicians Procedure: Cataract extraction with intraocular lens implant, left Same procedure as scheduled: Yes Indications: Visually significant age related nuclear cataract, left Surgeon: Chiki Stahl Click Yes if Unassisted: Yes Anesthesia Type: MAC +/- Operative Notes Procedure in detail: The patient was brought to the operating suite. The correct patient, surgical site and lens were confirmed. 0.5 % tetracaine drops were placed in the left eye. The patient was prepped and draped in the typical ster ile manner. A lid speculum was placed in the eye. 2% lidocaine was placed on the eye. A paracentesis port was created with a side-port blade. 0.1 mL of 1% preservative free lidocaine with phenylephrine was injected into the anterior chamber. Viscoelastic was injected into the anterior chamber. A 2.6mm keratome was used to create a clear corneal temporal incision. Cystotome and Utrata forceps were used to create a continuous curvilinear capsulorrhexis. Balanced salt solution was used to hydrodissect the nucleus. Phacoemulsification was used to remove the lens. The capsular bag was inflated with viscoelastic. A Acosta ZCBOO +18.5D lens was inserted into the capsule. Viscoelastic was removed and the wound hydrated. The wound was found to be leak free and the eye was assessed to be at normal physiologic pressure. 0.1mL Vigamox was injected into the anterior chamber. The lid speculum was removed and the patient left the operating room in excellent condition. Complications: none Condition: stable Disposition: same day surgery
[2019-07-02 10:45] VITALS: BP 127/82; PULSE 71; RESP 16; TEMP 36.4; O2SAT 98
== END 2019-07-02 10:53 | disposition home or self-care (01) ==
PROVIDERS: PCP Family Medicine; Visit Provider Ophthalmology
PROC: (CPT 66984; principal; 2019-07-02 09:45)
DX: H25.12 Age-related nuclear cataract, left eye (principal); I10 Essential (primary) hypertension; J44.9 Chronic obstructive pulmonary disease, unspecified; Z87.891 Personal history of nicotine dependence; H91.90 Unspecified hearing loss, unspecified ear
CPT/HCPCS: 66984; J0171; J2250; J3010

== ENCOUNTER 2022-03-02 15:24 | Emergency (ER) | payer MEDICARE, OTHER, SELFPAY ==
[2022-03-02] VITALS (7 sets, daily range): BP systolic 117–141; BP diastolic 62–67; PULSE 73–100; RESP 15–22; TEMP 36.6; O2SAT 91–98; BMI 34.6
--- NOTE | 2022-03-02 15:37 | DI.RAD.S_ITS ---
PROCEDURE: XR CHEST 2V INDICATIONS: shortness of breath TECHNIQUE: 2 views of the chest were acquired. COMPARISON: [facility], CR, XR CHEST 2V, 05/17/2018, 21:54. FINDINGS: Surgical changes and devices: None. Lungs and pleura: Right basilar atelectasis. Lungs otherwise clear. No pleural effusions or pneumothorax. Mediastinum: Mediastinal contours are normal. Heart size is normal. Bones and chest wall: No suspicious bony abnormalities. Soft tissues appear unremarkable. IMPRESSION: Right basilar streaky linear atelectasis. Otherwise no acute finding. Dictated by: Catrachito Escobedo M.D. on 03/02/2022 at 16:50 Approved by: Catrachito Escobedo M.D. on 03/02/2022 at 16:55
--- NOTE | 2022-03-02 15:51 | ED_ITS ---
HPI - SOB/Dyspnea <Ken Sharif PA-C - Last Filed: 03/02/22 19:41> General Chief Complaint: Shortness of Breath/Dyspnea Stated Complaint: BRONCHITIS SORE THROAT HARD TO BREATH Time Seen by Provider: 03/02/22 15:32 Source: patient Mode of arrival: Family Vehicle Limitations: no limitations History of Present Illness HPI Narrative: This is a 71-year-old male presents to the emergency department due to 2 week history of mild shortness of breath as well as feeling like ?phlegm is in the chest?. States that the coughing episodes cause shortness of breath but does not feel any shortness of breath at rest. States he had a URI symptoms prior to denies any significant chest pain fevers, nausea,, abdominal pain, any new concerning signs or symptoms. States that he is unable to lay flat as this causes him to cough up ?a bunch of phlegm?. Yellow in color. Denies any cardiac history, or history of CHF. Patient states he does have a history of COPD. Related Data Home Medications Medication Instructions Recorded Confirmed albuterol sulfate 90 mcg/actuation 2 puff INHALATION Q4-6H PRN 03/25/18 06/25/19 aerosol inhaler amlodipine 5 mg tablet 5 mg PO DAILY 03/25/18 07/02/19 finasteride 5 mg tablet 5 mg PO DAILY 03/25/18 06/25/19 hydrochlorothiazide 25 mg tablet 25 mg PO DAILY 03/25/18 07/02/19 lisinopril 10 mg tablet 10 mg PO DAILY 03/25/18 06/25/19 aspirin 81 mg tablet,delayed 81 mg PO DAILY 05/05/18 06/25/19 release loratadine 10 mg tablet 10 mg PO DAILY 05/05/18 06/25/19 omeprazole 20 mg capsule,delayed 20 mg PO DAILY 05/05/18 06/25/19 release montelukast 10 mg tablet 10 mg PO QPM 06/25/19 06/25/19 (Singulair) Previous Rx's Medication Instructions Recorded naproxen 500 mg tablet (Naprosyn) 500 mg PO Q12H PRN #30 tab 05/17/18 albuterol sulfate 90 mcg/actuation 2 inh INHALATION QID #6.7 g 03/02/22 aerosol inhaler (ProAir HFA) azithromycin 500 mg tablet 500 mg PO DAILY 3 Days #3 tab 03/02/22 ipratropium bromide 17 1 puff INHALATION QID #12.9 g 03/02/22 mcg/actuation HFA aerosol inhaler prednisone 20 mg tablet 40 mg PO DAILY 7 Days #14 tab 03/02/22 Allergies Allergy/AdvReac Type Severity Reaction Status Date / Time No Known Drug Allergies Allergy Verified 03/02/22 15:39 Review of Systems <Ken Sharif PA-C - Last Filed: 03/02/22 19:41> Review of Systems Narrative: See HPI Patient History <Ken Sharif PA-C - Last Filed: 03/02/22 19:41> Medical History (Updated 03/02/22 @ 18:10 by Ken Sharif PA-C) COPD (chronic obstructive pulmonary disease) HTN (hypertension) SAMUEL (obstructive sleep apnea) Pneumonia Pulmonary embolism Upper respiratory infection Surgical History (Updated 03/26/18 @ 08:17 by Fiordaliza Reyez RN) H/O cervical spine surgery Hx of tonsillectomy Hx of total knee arthroplasty Social History household members: spouse Smoking Status: Former smoker Smoking Status: Former smoker tobacco type: cigarettes alcohol intake frequency: 0-2 drinks per day Substance Use Type: does not use Exam <Ken Sharif PA-C - Last Filed: 03/02/22 19:41> Initial Vital Signs Initial Vital Signs: Vital Signs Pulse Rate 100 H 03/02/22 15:37 Respiratory Rate 18 03/02/22 15:37 Blood Pressure 141/67 H 03/02/22 15:37 Pulse Oximetry 93 03/02/22 15:37 Const General: cooperative and healthy appearing Chest Chest: normal inspection of the chest Resp Effort & Inspection: normal respiratory effort, able to speak in complete sent ences and cough Auscultation: clear to auscultation bilaterally Cardio Rate: regular rate Rhythm: regular rhythm GI Palpation: soft and No tender Neuro General: patient alert, patient awake and patient oriented x3 <Merary Taylor DO - Last Filed: 03/03/22 08:48> Initial Vital Signs Initial Vital Signs: Vital Signs Pulse Rate 100 H 03/02/22 15:37 Respiratory Rate 18 03/02/22 15:37 Blood Pressure 141/67 H 03/02/22 15:37 Pulse Oximetry 93 03/02/22 15:37 Course <Ken Sharif PA-C - Last Filed: 03/02/22 19:41> Orders Ordered: Discontinued Medications Albuterol/Ipratropium (Albuterol/Ipratropium 3 Ml Ampul) 3 ml INH NOW ONE Stop: 03/02/22 16:41 Last Admin: 03/02/22 16:48 Dose: 3 ml Documented by: PRESTON Reevaluation(s) Reevaluation #1: [id number]: Patient reports feeling somewhat better after breathing treatment Vital Signs Vital signs: Vital Signs - 8 hr 03/02/22 15:37 03/02/22 15:40 03/02/22 16:52 Temperature 97.8 F Pulse Rate 100 H 91 H 81 Respiratory Rate 18 22 18 Blood Pressure 141/67 H 141/67 H Pulse Oximetry 93 98 96 03/02/22 17:30 03/02/22 18:10 03/02/22 18:24 Temperature Pulse Rate 74 73 85 Respiratory Rate 18 15 Blood Pressure 117/65 130/62 Pulse Oximetry 95 92 91 03/02/22 18:30 Temperature Pulse Rate 81 Respiratory Rate 22 Blood Pressure Pulse Oximetry 91 <Merary Taylor DO - Last Filed: 03/03/22 08:48> Orders Ordered: Discontinued Medications Albuterol/Ipratropium (Albuterol/Ipratropium 3 Ml Ampul) 3 ml INH NOW ONE Stop: 03/02/22 16:41 Last Admin: 03/02/22 16:48 Dose: 3 ml Documented by: PRESTON Vital Signs Vital signs: Vital Signs - 8 hr 03/02/22 15:37 03/02/22 15:40 03/02/22 16:52 Temperature 97.8 F Pulse Rate 100 H 91 H 81 Respiratory Rate 18 22 18 Blood Pressure 141/67 H 141/67 H Pulse Oximetry 93 98 96 03/02/22 17:30 03/02/22 18:10 03/02/22 18:24 Temperature Pulse Rate 74 73 85 Respiratory Rate 18 15 Blood Pressure 117/65 130/62 Pulse Oximetry 95 92 91 03/02/22 18:30 Temperature Pulse Rate 81 Respiratory Rate 22 Blood Pressure Pulse Oximetry 91 MDM - SOB/Dyspnea <Ken Sharif PA-C - Last Filed: 03/02/22 19:41> Lab Data Result diagrams: 03/02/22 16:00 03/02/22 16:56 Labs: Lab Results 03/02/22 03/02/22 03/02/22 Range/Units 16:00 16:00 16:00 WBC 5.1 (4.5-11.0) X10^3/uL RBC 4.57 (4.5-5.9) X10^6/uL Hgb 14.4 (13.5-17.5) g/dL Hct 42.0 (41-53) % MCV 91.9 (80-100) fL MCH 31.5 (26-34) PG MCHC 34.2 (30-36) % RDW 12.6 (11.6-14.8) % Plt Count 226 (150-400) X10^3/uL Neut % (Auto) 56.6 (50-75) % Lymph % (Auto) 25.2 (25-40) % [place] % (Auto) 10.0 (3-14) % Eos % (Auto) 7.0 H (2-4) % Baso % (Auto) 1.2 (0-2) % Neut # (Auto) 2900 (5098-1396) /uL Lymph # (Auto) 1300 (5929-8229) /uL [place] # (Auto) 500 (0-900) /uL Eos # (Auto) 400 (0-450) /uL Baso # (Auto) 100 (0-100) /uL PT 12.3 (10.1-12.7) SECONDS INR 1.1 (0.9-1.3) Sodium (137-145) mmol/L Potassium (3.4-5.1) mmol/L Chloride (98-107) mmol/L Carbon Dioxide (22-32) mmol/L BUN (9-20) mg/dL Creatinine (0.66-1.25) mg/dL Estimated GFR (>60) mL/min BUN/Creatinine Ratio (6-22) Glucose (80-110) mg/dL Lactate 1.1 (0.7-2.1) mmol/L Calcium (8.4-10.2) mg/dL Total Bilirubin (0.2-1.3) mg/dL AST (17-59) IU/L ALT (<50) IU/L Alkaline Phosphatase (38-126) U/L Total Creatine Kinase (55-170) U/L CK-MB (CK-2) (<2.37) ng/mL CK-MB (CK-2) Rel Index (1.5-5.0) % Troponin I (0.01-0.034) ng/mL NT-Pro-B Natriuret Pep (<125) pg/mL Total Protein (6.3-8.2) g/dL Albumin (3.5-5.0) g/dL Globulin (1.7-4.1) g/dL Albumin/Globulin Ratio (1.0-2.8) SARS-CoV-2 (PCR) (Negative) 03/02/22 03/02/22 03/02/22 Range/Units 16:00 16:56 16:56 WBC (4.5-11.0) X10^3/uL RBC (4.5-5.9) X10^6/uL Hgb (13.5-17.5) g/dL Hct (41-53) % MCV (80-100) fL MCH (26-34) PG MCHC (30-36) % RDW (11.6-14.8) % Plt Count (150-400) X10^3/uL Neut % (Auto) (50-75) % Lymph % (Auto) (25-40) % [place] % (Auto) (3-14) % Eos % (Auto) (2-4) % Baso % (Auto) (0-2) % Neut # (Auto) (0548-3177) /uL Lymph # (Auto) (1249-0533) /uL [place] # (Auto) (0-900) /uL Eos # (Auto) (0-450) /uL Baso # (Auto) (0-100) /uL PT (10.1-12.7) SECONDS INR (0.9-1.3) Sodium 139 (137-145) mmol/L Potassium 4.2 (3.4-5.1) mmol/L Chloride 103 (98-107) mmol/L Carbon Dioxide 27 (22-32) mmol/L BUN 14 (9-20) mg/dL Creatinine 0.73 (0.66-1.25) mg/dL Estimated GFR > 60.0 (>60) mL/min BUN/Creatinine Ratio 19.2 (6-22) Glucose 91 (80-110) mg/dL Lactate (0.7-2.1) mmol/L Calcium 8.7 (8.4-10.2) mg/dL Total Bilirubin 0.4 (0.2-1.3) mg/dL AST 32 (17-59) IU/L ALT 28 (<50) IU/L Alkaline Phosphatase 67 (38-126) U/L Total Creatine Kinase 143 (55-170) U/L CK-MB (CK-2) 1.45 (<2.37) ng/mL CK-MB (CK-2) Rel Index 1.0 L (1.5-5.0) % Troponin I < 0.012 (0.01-0.034) ng/mL NT-Pro-B Natriuret Pep 24 (<125) pg/mL Total Protein 8.0 (6.3-8.2) g/dL Albumin 4.6 (3.5-5.0) g/dL Globulin 3.4 (1.7-4.1) g/dL Albumin/Globulin Ratio 1.4 (1.0-2.8) SARS-CoV-2 (PCR) Negative (Negative) Imaging Data Chest x-ray: My Impression: [address] [address] XRay Report Signed Patient: Obinna Molina Sr MR#: [id number] : 1950 Acct:[id number] Age/Sex: 71 / M Date of Service: 03/02/22 Loc: ED Accession Number: [id number] ?? Procedure: XR chest 2V Ordering Provider: Ken Sharif P.A-C PROCEDURE:? XR CHEST 2V ? INDICATIONS:? shortness of breath ? TECHNIQUE:? 2 views of the chest were acquired.? ? COMPARISON:? [facility], CR, XR CHEST 2V, 05/17/2018, 21:54. ? FINDINGS:? ? Surgical changes and devices:? None.? ? Lungs and pleura:? Right basilar atelectasis.? Lungs otherwise clear.? No pleural effusions or pneumothorax.? ? Mediastinum:? Mediastinal contours are normal.? Heart size is normal.? ? Bones and chest wall:? No suspicious bony abnormalities.? Soft tissues appear unremarkable.? ? IMPRESSION:? Right basilar streaky linear atelectasis.? Otherwise no acute finding.? ? ? Dictated by: Catrachito Escobedo M.D. on 03/02/2022 at 16:50 ? ? Approved by: Catrachito Escobedo M.D. on 03/02/2022 at 16:55 ? ECG Data Interpretation: 1552: Normal sinus rhythm with a rate of 87 beats per minute, low-voltage QRS, no ST elevation or T-wave abnormalities MDM Narrative Medical decision making narrative: This is a 71-year-old male presents emergency department due to a suspected COPD exacerbation. Patient reports a history of COPD with mildly increased shortness of breath and increased sputum production. Troponin within normal limits and EKG showed no evidence of ACS. No other lab work abnormality, no evidence of infection, CMP unremarkable. Lactate unremarkable. Chest x-ray showed mild atelectasis but no evidence of any acute pneumonia. Patient was given breathing treatment here in the emergency department which helped the symptoms. Based on patient's symptoms we will treat for suspected COPD exacerbation. <Merary Taylor, - Last Filed: 03/03/22 08:48> Lab Data Labs: Lab Results 03/02/22 03/02/22 03/02/22 Range/Units 16:00 16:00 16:00 WBC 5.1 (4.5-11.0) X10^3/uL RBC 4.57 (4.5-5.9) X10^6/uL Hgb 14.4 (13.5-17.5) g/dL Hct 42.0 (41-53) % MCV 91.9 (80-100) fL MCH 31.5 (26-34) PG MCHC 34.2 (30-36) % RDW 12.6 (11.6-14.8) % Plt Count 226 (150-400) X10^3/uL Neut % (Auto) 56.6 (50-75) % Lymph % (Auto) 25.2 (25-40) % [place] % (Auto) 10.0 (3-14) % Eos % (Auto) 7.0 H (2-4) % Baso % (Auto) 1.2 (0-2) % Neut # (Auto) 2900 (1741-4118) /uL Lymph # (Auto) 1300 (8311-7329) /uL [place] # (Auto) 500 (0-900) /uL Eos # (Auto) 400 (0-450) /uL Baso # (Auto) 100 (0-100) /uL PT 12.3 (10.1-12.7) SECONDS INR 1.1 (0.9-1.3) Sodium (137-145) mmol/L Potassium (3.4-5.1) mmol/L Chloride (98-107) mmol/L Carbon Dioxide (22-32) mmol/L BUN (9-20) mg/dL Creatinine (0.66-1.25) mg/dL Estimated GFR (>60) mL/min BUN/Creatinine Ratio (6-22) Glucose (80-110) mg/dL Lactate 1.1 (0.7-2.1) mmol/L Calcium (8.4-10.2) mg/dL Total Bilirubin (0.2-1.3) mg/dL AST (17-59) IU/L ALT (<50) IU/L Alkaline Phosphatase (38-126) U/L Total Creatine Kinase (55-170) U/L CK-MB (CK-2) (<2.37) ng/mL CK-MB (CK-2) Rel Index (1.5-5.0) % Troponin I (0.01-0.034) ng/mL NT-Pro-B Natriuret Pep (<125) pg/mL Total Protein (6.3-8.2) g/dL Albumin (3.5-5.0) g/dL Globulin (1.7-4.1) g/dL Albumin/Globulin Ratio (1.0-2.8) SARS-CoV-2 (PCR) (Negative) 03/02/22 03/02/22 03/02/22 Range/Units 16:00 16:56 16:56 WBC (4.5-11.0) X10^3/uL RBC (4.5-5.9) X10^6/uL Hgb (13.5-17.5) g/dL Hct (41-53) % MCV (80-100) fL MCH (26-34) PG MCHC (30-36) % RDW (11.6-14.8) % Plt Count (150-400) X10^3/uL Neut % (Auto) (50-75) % Lymph % (Auto) (25-40) % [place] % (Auto) (3-14) % Eos % (Auto) (2-4) % Baso % (Auto) (0-2) % Neut # (Auto) (4947-0244) /uL Lymph # (Auto) (1191-8264) /uL [place] # (Auto) (0-900) /uL Eos # (Auto) (0-450) /uL Baso # (Auto) (0-100) /uL PT (10.1-12.7) SECONDS INR (0.9-1.3) Sodium 139 (137-145) mmol/L Potassium 4.2 (3.4-5.1) mmol/L Chloride 103 (98-107) mmol/L Carbon Dioxide 27 (22-32) mmol/L BUN 14 (9-20) mg/dL Creatinine 0.73 (0.66-1.25) mg/dL Estimated GFR > 60.0 (>60) mL/min BUN/Creatinine Ratio 19.2 (6-22) Glucose 91 (80-110) mg/dL Lactate (0.7-2.1) mmol/L Calcium 8.7 (8.4-10.2) mg/dL Total Bilirubin 0.4 (0.2-1.3) mg/dL AST 32 (17-59) IU/L ALT 28 (<50) IU/L Alkaline Phosphatase 67 (38-126) U/L Total Creatine Kinase 143 (55-170) U/L CK-MB (CK-2) 1.45 (<2.37) ng/mL CK-MB (CK-2) Rel Index 1.0 L (1.5-5.0) % Troponin I < 0.012 (0.01-0.034) ng/mL NT-Pro-B Natriuret Pep 24 (<125) pg/mL Total Protein 8.0 (6.3-8.2) g/dL Albumin 4.6 (3.5-5.0) g/dL Globulin 3.4 (1.7-4.1) g/dL Albumin/Globulin Ratio 1.4 (1.0-2.8) SARS-CoV-2 (PCR) Negative (Negative) ECG Data Interpretation: 1552: Normal sinus rhythm with a rate of 87 beats per minute, low-voltage QRS, no ST elevation or T-wave abnormalities sergei-normal sinus rhythm rate 87 FL interval 162 QRS [address] changes no T-wave inversions similar to previous EKG Discharge Plan Departure Patient Disposition: Home Clinical Impression: Acute exacerbation of chronic obstructive pulmonary disease Instructions: DI for Chronic Obstructive Pulmonary Disease Activity Restrictions/Additional Instructions: Thank you for coming into the [facility] Emergency Department today. We prescribed you a new albuterol inhaler which should help with his symptoms. We will also prescribe you have ipratropium bromide which will help with your breathing as well. The oral steroids prescribed should help as well. Please take the antibiotics as this may help as well. Please use [id number] Mucinex as well to help break up the mucus in your chest. I hope you feel better soon. Prescriptions: New albuterol sulfate [ProAir HFA] 90 mcg/actuation HFA aerosol inhaler 2 inh inhalation QID Qty: 6.7 0RF ipratropium bromide 17 mcg/actuation HFA aerosol inhaler 1 puff inhalation QID Qty: 12.9 0RF azithromycin 500 mg tablet 500 mg PO DAILY 3 Days Qty: 3 0RF prednisone 20 mg tablet 40 mg PO DAILY 7 Days Qty: 14 0RF No Action amlodipine 5 mg Tablet 5 mg PO DAILY 0RF lisinopril 10 mg Tablet 10 mg PO DAILY 0RF hydrochlorothiazide 25 mg Tablet 25 mg PO DAILY 0RF albuterol sulfate 90 mcg/actuation Hfa Aerosol Inhaler 2 puff INHALATION Q4-6H PRN (Reason: COPD) 0RF finasteride 5 mg Tablet 5 mg PO DAILY 0RF aspirin 81 mg tablet,delayed release (DR/EC) 81 mg PO DAILY 0RF Label Comments: ASA on hold r/t upcoming spinal injection. omeprazole 20 mg capsule,delayed release(DR/EC) 20 mg PO DAILY 0RF loratadine 10 mg tablet 10 mg PO DAILY 0RF montelukast [Singulair] 10 mg Tablet 10 mg PO QPM 0RF naproxen [Naprosyn] 500 mg tablet 500 mg PO Q12H PRN (Reason: pain) Qty: 30 0RF Rx Instructions: administer with food or milk Referrals: Obinna Rushing MD [Primary Care Provider] - <Merary Taylor, - Last Filed: 03/03/22 08:48> Cosign ED Attending Laquitaature Attestation: I was immediately available in the department for consultation. Documentation has been reviewed. I agree with assessment and plan.
[2022-03-02 16:14] LABS: Add Manual Diff / Slide Review NO; Basophils Absolute Auto 100 /uL (0-100); Basophils Percent Auto 1.2 % (0-2); Eosinophils Absolute Auto 400 /uL (0-450); Hemoglobin 14.4 g/dL (13.5-17.5); Lymphocytes Absolute Auto 1300 /uL (1100-4500); Lymphocytes Percent Auto 25.2 % (25-40); Mean Corpuscular HGB Conc 34.2 % (30-36); Mean Corpuscular Hemoglobin 31.5 PG (26-34); Mean Corpuscular Volume 91.9 fL (80-100); Monocytes Absolute Auto 500 /uL (0-900); Neutrophils Absolute Auto 2900 /uL (1500-7000); Neutrophils Percent Auto 56.6 % (50-75); Platelet Count 226 X10^3/uL (150-400); Red Blood Cell Count 4.57 X10^6/uL (4.5-5.9); Red Cell Distribution Width 12.6 % (11.6-14.8); White Blood Cell Count 5.1 X10^3/uL (4.5-11.0)
[2022-03-02 16:26] LABS: INR 1.1 (0.9-1.3); Prothrombin Time 12.3 SECONDS (10.1-12.7)
[2022-03-02 16:32] LABS: COVID19 -Nasal RAPID Negative (Negative); Lactate (Lactic Acid) 1.1 mmol/L (0.7-2.1)
[2022-03-02] MEDS: ALBUTEROL/IPRATROPIUM 3 ML AMPUL INH (16:48)
[2022-03-02 17:26] LABS: Alanine Aminotransferase 28 IU/L (<50); Albumin 4.6 g/dL (3.5-5.0); Albumin Globulin Ratio 1.4 (1.0-2.8); Alkaline Phosphatase 67 U/L (38-126); Aspartate Aminotransferase 32 IU/L (17-59); BUN Creatinine Ratio 19.2 (6-22); Bilirubin Total 0.4 mg/dL (0.2-1.3); Blood Urea Nitrogen 14 mg/dL (9-20); Calcium 8.7 mg/dL (8.4-10.2); Carbon Dioxide 27 mmol/L (22-32); Chloride 103 mmol/L (98-107); Estimated Glomerular Filt Rate > 60.0 mL/min (>60); Globulin 3.4 g/dL (1.7-4.1); Glucose 91 mg/dL (80-110); HEMOLYSIS 31 (0-50); Potassium 4.2 mmol/L (3.4-5.1); Sodium 139 mmol/L (137-145)
[2022-03-02 17:27] LABS: Creatine Kinase 143 U/L (55-170)
[2022-03-02 17:36] LABS: NT-proBNP (BNP-Adult 18+) 24 pg/mL (<125)
[2022-03-02 17:37] LABS: Troponin I < 0.012 ng/mL (0.01-0.034)
[2022-03-02 17:41] LABS: Creatine Kinase MB 1.45 ng/mL (<2.37)
== END 2022-03-02 18:37 | disposition home or self-care (01) ==
PROVIDERS: Emergency Provider Physician Assistant Medical; PCP Family Medicine
DX: J44.1 Chronic obstructive pulmonary disease with (acute) exacerbation (principal); Z87.891 Personal history of nicotine dependence; Z20.822 Contact with and (suspected) exposure to COVID-19
CPT/HCPCS: 36415; 71046; 80053; 82550; 82553; 83605; 83880; 84484; 85025; 85610; 87635; 93005; 93010; 94640; 99284; C9803

== ENCOUNTER 2022-09-16 12:44 | Emergency (ER) | payer MEDICARE, OTHER, SELFPAY ==
[2022-09-16] VITALS (7 sets, daily range): BP systolic 122–134; BP diastolic 66–70; PULSE 64–87; RESP 15–23; TEMP 36.2; O2SAT 91–96; BMI 33.1
--- NOTE | 2022-09-16 13:00 | DI.RAD.S_ITS ---
PROCEDURE: XR CHEST 1V INDICATIONS: chest pain TECHNIQUE: One view of the chest was acquired. COMPARISON: [facility], CR, XR CHEST 2V, 03/02/2022, 16:40. FINDINGS: Surgical changes and devices: Surgical hardware fusion in the lower cervical spine. Lungs and pleura: Hyperlucent lungs with horizontal linear scarring at both lung bases. No new consolidations, effusion, or pneumothorax. Mediastinum: Mediastinal contours appear normal. Heart size is normal. Bones and chest wall: No suspicious bony lesions. Degenerative endplate spurs in the thoracic spine. Deformity of several healed left rib fractures. Overlying soft tissues appear unremarkable. IMPRESSION: 1. No acute cardiopulmonary disease. 2. Chronic bibasilar scarring. Dictated by: Jess Sidhu M.D. on 09/16/2022 at 12:41 Approved by: Jess Sidhu M.D. on 09/16/2022 at 12:43
[2022-09-16 13:44] LABS: COVID19 -Nasal RAPID Negative (Negative)
[2022-09-16 13:46] LABS: Add Manual Diff / Slide Review NO; Basophils Absolute Auto 100 /uL (0-100); Basophils Percent Auto 1.3 % (0-2); Eosinophils Absolute Auto 400 /uL (0-450); Eosinophils Percent Auto 7.8 % (2-4); Hematocrit 41.3 % (41-53); Lymphocytes Absolute Auto 1200 /uL (1100-4500); Lymphocytes Percent Auto 24.5 % (25-40); Mean Corpuscular HGB Conc 34.1 % (30-36); Mean Corpuscular Hemoglobin 31.2 PG (26-34); Mean Corpuscular Volume 91.7 fL (80-100); Monocytes Absolute Auto 600 /uL (0-900); Neutrophils Absolute Auto 2600 /uL (1500-7000); Neutrophils Percent Auto 54.4 % (50-75); Platelet Count 222 X10^3/uL (150-400); Red Cell Distribution Width 12.9 % (11.6-14.8); White Blood Cell Count 4.8 X10^3/uL (4.5-11.0)
[2022-09-16 13:53] LABS: Alanine Aminotransferase 29 IU/L (<50); Albumin 4.2 g/dL (3.5-5.0); Albumin Globulin Ratio 1.3 (1.0-2.8); Alkaline Phosphatase 78 U/L (38-126); Aspartate Aminotransferase 33 IU/L (17-59); BUN Creatinine Ratio 19.2 (6-22); Bilirubin Total 0.5 mg/dL (0.2-1.3); Blood Urea Nitrogen 14 mg/dL (9-20); Carbon Dioxide 29 mmol/L (22-32); Chloride 100 mmol/L (98-107); Creatine Kinase 212 U/L (55-170); Estimated Glomerular Filt Rate > 60 mL/min (>60); Globulin 3.3 g/dL (1.7-4.1); Glucose 106 mg/dL (80-110); HEMOLYSIS < 15 (0-50); Lipase 72 U/L (23-300); Potassium 3.8 mmol/L (3.4-5.1); Sodium 137 mmol/L (137-145); Total Protein 7.5 g/dL (6.3-8.2)
[2022-09-16 14:04] LABS: Troponin I < 0.012 ng/mL (0.01-0.034)
[2022-09-16 14:08] LABS: CKMB % Relative Index 0.6 % (1.5-5.0); Creatine Kinase MB 1.32 ng/mL (<2.37)
--- NOTE | 2022-09-16 14:31 | ED.CHESTPAIN ---
HPI - Chest Pain <Edward Rodriguez PA-C - Last Filed: 09/16/22 16:04> General Chief Complaint: Chest Pain Stated Complaint: SOB, Sore throat, runny nose, chest pressure,COPD Time Seen by Provider: 09/16/22 13:06 Source: patient Mode of arrival: Ambulatory Limitations: no limitations History of Present Illness HPI narrative: Patient is a 72-year-old male who presents emergency room today with complaint of chest discomfort that started on of last week. States it initially started with a sore throat on that progressed to sinus drainage on Saturday then progressed to the chest discomfort that he has now. States on Saturday he had associated sinus congestion that was slightly relieved with DayQuil the day before. Also admits to having associated shortness of breath but denies nausea vomiting. Admits to a diagnosis of COPD that was initially diagnosed about 3 years ago. States he sees a field account director regularly and has regular exacerbations of his bronchitis. States the last time he had exacerbation of his bronchitis it was relieved with steroids. States his chest discomfort is made worse with standing and walking and is made better with sitting or lying still. Main concern now is his cough. Also admits to a history of hypertension, COPD, reflux esophagitis and an enlarged prostate. Related Data Home Medications Medication Instructions Recorded Confirmed albuterol sulfate 90 mcg/actuation 2 puff inhalation Q4-6H PRN COPD 03/25/18 06/25/19 aerosol inhaler amlodipine 5 mg tablet 5 mg PO DAILY 03/25/18 07/02/19 finasteride 5 mg tablet 5 mg PO DAILY 03/25/18 06/25/19 hydrochlorothiazide 25 mg tablet 25 mg PO DAILY 03/25/18 07/02/19 lisinopril 10 mg tablet 10 mg PO DAILY 03/25/18 06/25/19 aspirin 81 mg tablet,delayed 81 mg PO DAILY 05/05/18 06/25/19 release loratadine 10 mg tablet 10 mg PO DAILY 05/05/18 06/25/19 omeprazole 20 mg capsule,delayed 20 mg PO DAILY 05/05/18 06/25/19 release montelukast 10 mg tablet 10 mg PO QPM 06/25/19 06/25/19 (Singulair) Previous Rx's Medication Instructions Recorded naproxen 500 mg tablet (Naprosyn) 500 mg PO Q12H PRN pain #30 tabs 05/17/18 albuterol sulfate 90 mcg/actuation 2 inh inhalation QID #6.7 grams 03/02/22 aerosol inhaler (ProAir HFA) ipratropium bromide 17 1 puff inhalation QID #12.9 grams 03/02/22 mcg/actuation HFA aerosol inhaler benzonatate 100 mg capsule 100 mg PO BID PRN cough #14 caps 09/16/22 prednisone 5 mg tablet,delayed 5 mg PO DAILY Exacerbation of 09/16/22 release Bronchitis #15 tabs Allergies Allergy/AdvReac Type Severity Reaction Status Date / Time No Known Drug Allergies Allergy Verified 03/02/22 15:39 Review of Systems <Edward Rodriguez PA-C - Last Filed: 09/16/22 16:04> Review of Systems Narrative: R.O.S.: General: No fever, chills or fatigue. Cardiovascular: No chest pain or palpitations Respiratory: Cough shortness of breath and sinus congestion HEENT: Sinus congestion and sore throat, but no ear pain, rhinorrhea or tinnitus Gastrointestinal: No nausea or vomiting : No urinary concerns Skin: No rash or associated abnormalities Musculoskeletal: No pain in muscles or joints, no limitation of range of motion, no paresthesia or numbness. ?? Neurological: Awake, alert and in not apparent distress. No Headaches, changes in vision or other related neurological concerns. Patient History <Edward Rodriguez PA-C - Last Filed: 09/16/22 16:04> Medical History (Updated 09/16/22 @ 15:38 by Edward Rodriguez PA-C) COPD (chronic obstructive pulmonary disease) HTN (hypertension) SAMUEL (obstructive sleep apnea) Pneumonia Pulmonary embolism Upper respiratory infection Surgical History (Updated 03/26/18 @ 08:17 by Fiordaliza Reyez RN) H/O cervical spine surgery Hx of tonsillectomy Hx of total knee arthroplasty Social History household members: spouse Smoking Status: Former smoker Smoking Status: Former smoker tobacco type: cigarettes alcohol intake frequency: 0-2 drinks per day Substance Use Type: does not use Exam <Edward Rodriguez PA-C - Last Filed: 09/16/22 16:04> Narrative Exam Narrative: Physical Exam: ? General: normal appearance, well developed, well nourished, alert, and awake. Not in acute distress. ? Head: Normocephalic, no lesions. Chest: Wheezes throughout all lung gaspar? Heart: RRR, no murmurs, rubs or gallops. Eyes: PERRLA, EOM's full, conjunctivae clear. ? Neuro: Physiological, no localizing findings, CN3-12 intact. ?? Extremities: Warm, well perfused, FROM, no deformities, no edema. ?? Skin: Normal, no rashes, no lesions noted. ?? PSYCHIATRIC: The mood is good, no blunted affect. Speech is clear. Thought process is linear, thought content is appropriate. The voice is without significant inflection. Gastrointestinal: Soft; NT; ND; Pos BS with Neg. rebound tenderness. No scars or major deformities noted on Visual Inspection. Initial Vital Signs Initial Vital Signs: Vital Signs Temperature 97.2 F L 09/16/22 13:00 Pulse Rate 87 09/16/22 13:00 Respiratory Rate 16 09/16/22 13:00 Blood Pressure 128/66 09/16/22 13:00 Pulse Oximetry 96 09/16/22 13:00 Oxygen Delivery Method 09/16/22 13:00 <Asmita Mata DO - Last Filed: 09/23/22 04:38> Initial Vital Signs Initial Vital Signs: Vital Signs Temperature 97.2 F L 09/16/22 13:00 Pulse Rate 87 09/16/22 13:00 Respiratory Rate 16 09/16/22 13:00 Blood Pressure 128/66 09/16/22 13:00 Pulse Oximetry 96 09/16/22 13:00 Oxygen Delivery Method 09/16/22 13:00 Course <Edward Rodriguez PA-C - Last Filed: 09/16/22 16:04> Orders Ordered: Discontinued Medications Albuterol/Ipratropium (Albuterol/Ipratropium 3 Ml Ampul) 3 ml INH NOW ONE Stop: 09/16/22 15:27 Last Admin: 09/16/22 15:28 Dose: 3 ml Documented By: LULU Benzonatate (Benzonatate 100 Mg Capsule) 50 mg PO NOW ONE Stop: 09/16/22 14:43 Last Admin: 09/16/22 15:06 Dose: Not Given Documented By: ZHANE Benzonatate (Benzonatate 100 Mg Capsule) 100 mg PO NOW ONE Stop: 09/16/22 15:01 Last Admin: 09/16/22 15:05 Dose: 100 mg Documented By: ZHANE Sodium Chloride (Normal Saline 0.9%) 1,000 mls @ 1,000 mls/hr IV BOLUS PRN PRN Reason: Fluid replacement Last Infusion: 09/16/22 15:54 Dose: 0 mls/hr Documented By: Admin: 09/16/22 15:10 Dose: 1,000 mls/hr Documented By: ZHANE Methylprednisolone (Methylprednisolone 125 Mg/2 Ml Vial) 125 mg IV NOW ONE Stop: 09/16/22 14:33 Last Admin: 09/16/22 15:05 Dose: 125 mg Documented By: ZHANE Vital Signs Vital signs: Vital Signs - 8 hr 09/16/22 13:00 09/16/22 13:01 09/16/22 13:01 Temperature 97.2 F L Pulse Rate 87 85 Respiratory Rate 16 23 Blood Pressure 128/66 128/66 Pulse Oximetry 96 94 Oxygen Delivery Method Room Air 09/16/22 13:30 09/16/22 13:30 09/16/22 14:00 Temperature Pulse Rate 68 Respiratory Rate 15 Blood Pressure 134/67 122/67 Pulse Oximetry 92 Oxygen Delivery Method 09/16/22 14:00 09/16/22 14:30 09/16/22 14:30 Temperature Pulse Rate 64 73 Respiratory Rate 17 17 Blood Pressure 130/70 Pulse Oximetry 91 93 Oxygen Delivery Method 09/16/22 15:00 09/16/22 15:00 09/16/22 15:28 Temperature Pulse Rate 66 81 Respiratory Rate 17 18 Blood Pressure 128/68 Pulse Oximetry 94 94 Oxygen Delivery Method Room Air <Asmita Mata, - Last Filed: 09/23/22 04:38> Orders Ordered: Discontinued Medications Albuterol/Ipratropium (Albuterol/Ipratropium 3 Ml Ampul) 3 ml INH NOW ONE Stop: 09/16/22 15:27 Last Admin: 09/16/22 15:28 Dose: 3 ml Documented By: LULU Benzonatate (Benzonatate 100 Mg Capsule) 50 mg PO NOW ONE Stop: 09/16/22 14:43 Last Admin: 09/16/22 15:06 Dose: Not Given Documented By: ZHANE Benzonatate (Benzonatate 100 Mg Capsule) 100 mg PO NOW ONE Stop: 09/16/22 15:01 Last Admin: 09/16/22 15:05 Dose: 100 mg Documented By: ZHANE Sodium Chloride (Normal Saline 0.9%) 1,000 mls @ 1,000 mls/hr IV BOLUS PRN PRN Reason: Fluid replacement Last Infusion: 09/16/22 15:54 Dose: 0 mls/hr Documented By: Admin: 09/16/22 15:10 Dose: 1,000 mls/hr Documented By: ZHANE Methylprednisolone (Methylprednisolone 125 Mg/2 Ml Vial) 125 mg IV NOW ONE Stop: 09/16/22 14:33 Last Admin: 09/16/22 15:05 Dose: 125 mg Documented By: ZHANE Vital Signs Vital signs: Vital Signs - 8 hr 09/16/22 13:00 09/16/22 13:01 09/16/22 13:01 Temperature 97.2 F L Pulse Rate 87 85 Respiratory Rate 16 23 Blood Pressure 128/66 128/66 Pulse Oximetry 96 94 Oxygen Delivery Method Room Air 09/16/22 13:30 09/16/22 13:30 09/16/22 14:00 Temperature Pulse Rate 68 Respiratory Rate 15 Blood Pressure 134/67 122/67 Pulse Oximetry 92 Oxygen Delivery Method 09/16/22 14:00 09/16/22 14:30 09/16/22 14:30 Temperature Pulse Rate 64 73 Respiratory Rate 17 17 Blood Pressure 130/70 Pulse Oximetry 91 93 Oxygen Delivery Method 09/16/22 15:00 09/16/22 15:00 09/16/22 15:28 Temperature Pulse Rate 66 81 Respiratory Rate 17 18 Blood Pressure 128/68 Pulse Oximetry 94 94 Oxygen Delivery Method Room Air MDM - Chest Pain <Edward Rodriguez PA-C - Last Filed: 09/16/22 16:04> Lab Data Result diagrams: 09/16/22 13:00 09/16/22 13:00 Labs: Lab Results 09/16/22 09/16/22 09/16/22 Range/Units 13:00 13:00 13:00 WBC 4.8 (4.5-11.0) X10^3/uL RBC 4.50 (4.5-5.9) X10^6/uL Hgb 14.0 (13.5-17.5) g/dL Hct 41.3 (41-53) % MCV 91.7 (80-100) fL MCH 31.2 (26-34) PG MCHC 34.1 (30-36) % RDW 12.9 (11.6-14.8) % Plt Count 222 (150-400) X10^3/uL Neut % (Auto) 54.4 (50-75) % Lymph % (Auto) 24.5 L (25-40) % Arroyo % (Auto) 12.0 (3-14) % Eos % (Auto) 7.8 H (2-4) % Baso % (Auto) 1.3 (0-2) % Neut # (Auto) 2600 (6944-6599) /uL Lymph # (Auto) 1200 (0868-2228) /uL Arroyo # (Auto) 600 (0-900) /uL Eos # (Auto) 400 (0-450) /uL Baso # (Auto) 100 (0-100) /uL Sodium 137 (137-145) mmol/L Potassium 3.8 (3.4-5.1) mmol/L Chloride 100 (98-107) mmol/L Carbon Dioxide 29 (22-32) mmol/L BUN 14 (9-20) mg/dL Creatinine 0.73 (0.66-1.25) mg/dL Estimated GFR > 60 (>60) mL/min BUN/Creatinine Ratio 19.2 (6-22) Glucose 106 (80-110) mg/dL Lactate (0.7-2.1) mmol/L Calcium 9.0 (8.4-10.2) mg/dL Magnesium 2.0 (1.6-2.3) mg/dL Total Bilirubin 0.5 (0.2-1.3) mg/dL AST 33 (17-59) IU/L ALT 29 (<50) IU/L Alkaline Phosphatase 78 (38-126) U/L Total Creatine Kinase 212 H (55-170) U/L CK-MB (CK-2) 1.32 (<2.37) ng/mL CK-MB (CK-2) Rel Index 0.6 L (1.5-5.0) % Troponin I < 0.012 (0.01-0.034) ng/mL Total Protein 7.5 (6.3-8.2) g/dL Albumin 4.2 (3.5-5.0) g/dL Globulin 3.3 (1.7-4.1) g/dL Albumin/Globulin Ratio 1.3 (1.0-2.8) Lipase 72 (23-300) U/L Procalcitonin (<0.5) ng/mL SARS-CoV-2 (PCR) Negative (Negative) 09/16/22 09/16/22 Range/Units 13:00 14:32 WBC (4.5-11.0) X10^3/uL RBC (4.5-5.9) X10^6/uL Hgb (13.5-17.5) g/dL Hct (41-53) % MCV (80-100) fL MCH (26-34) PG MCHC (30-36) % RDW (11.6-14.8) % Plt Count (150-400) X10^3/uL Neut % (Auto) (50-75) % Lymph % (Auto) (25-40) % Arroyo % (Auto) (3-14) % Eos % (Auto) (2-4) % Baso % (Auto) (0-2) % Neut # (Auto) (2424-9570) /uL Lymph # (Auto) (2679-8044) /uL Arroyo # (Auto) (0-900) /uL Eos # (Auto) (0-450) /uL Baso # (Auto) (0-100) /uL Sodium (137-145) mmol/L Potassium (3.4-5.1) mmol/L Chloride (98-107) mmol/L Carbon Dioxide (22-32) mmol/L BUN (9-20) mg/dL Creatinine (0.66-1.25) mg/dL Estimated GFR (>60) mL/min BUN/Creatinine Ratio (6-22) Glucose (80-110) mg/dL Lactate 0.9 (0.7-2.1) mmol/L Calcium (8.4-10.2) mg/dL Magnesium (1.6-2.3) mg/dL Total Bilirubin (0.2-1.3) mg/dL AST (17-59) IU/L ALT (<50) IU/L Alkaline Phosphatase (38-126) U/L Total Creatine Kinase (55-170) U/L CK-MB (CK-2) (<2.37) ng/mL CK-MB (CK-2) Rel Index (1.5-5.0) % Troponin I (0.01-0.034) ng/mL Total Protein (6.3-8.2) g/dL Albumin (3.5-5.0) g/dL Globulin (1.7-4.1) g/dL Albumin/Globulin Ratio (1.0-2.8) Lipase (23-300) U/L Procalcitonin 0.05 (<0.5) ng/mL SARS-CoV-2 (PCR) (Negative) Imaging Data Chest x-ray: Radiologist's Impression: [address] [address] XRay Report Signed Patient: Obinna Molina Sr MR#: [id number] : 1950 Acct:[id number] Age/Sex: 72 / M Date of Service: 09/16/22 Loc: ED Accession Number: [id number] ?? Procedure: XR chest 1V Ordering Provider: Asmita Mata D.O. PROCEDURE:? XR CHEST 1V ? INDICATIONS:? chest pain ? TECHNIQUE:? One view of the chest was acquired.? ? COMPARISON:? [facility], MARILYN, XR CHEST 2V, 03/02/2022, 16:40. ? FINDINGS:? ? Surgical changes and devices:? Surgical hardware fusion in the lower cervical spine. ? Lungs and pleura:? Hyperlucent lungs with horizontal linear scarring at both lung bases.? No new consolidations, effusion, or pneumothorax. ? Mediastinum:? Mediastinal contours appear normal.? Heart size is normal.? ? Bones and chest wall:? No suspicious bony lesions. Degenerative endplate spurs in the thoracic spine.? Deformity of several healed left rib fractures.? Overlying soft tissues appear unremarkable.? ? IMPRESSION:? ? 1. No acute cardiopulmonary disease.? ? 2. Chronic bibasilar scarring.? ? Dictated by: Jess Sidhu M.D. on 09/16/2022 at 12:41 ? ? Approved by: Jess Sidhu M.D. on 09/16/2022 at 12:43 ? MDM Narrative Medical decision making narrative: Patient to the emergency room today with complaint of cough and chest discomfort for the last 2-3 days. Admits to history of bronchitis and recurrent associated respiratory concerns. Chest x-ray was unremarkable and COVID test was negative. Other labs are not suggestive of any acute emergent concerns. IV fluids and prednisone were administered in addition to Tessalon Perles for cough during this visit. Mucomyst was offered for loose cough and patient declined, stating he has Mucinex at home. Plan is to discharge patient with tapering prednisone Dosepak for bronchitis and Tessalon Perles for the cough. Patient also has Instructions to return if any emergent concerns arise. <Asmita Mata, DO - Last Filed: 09/23/22 04:38> Lab Data Labs: Lab Results 09/16/22 09/16/22 09/16/22 Range/Units 13:00 13:00 13:00 WBC 4.8 (4.5-11.0) X10^3/uL RBC 4.50 (4.5-5.9) X10^6/uL Hgb 14.0 (13.5-17.5) g/dL Hct 41.3 (41-53) % MCV 91.7 (80-100) fL MCH 31.2 (26-34) PG MCHC 34.1 (30-36) % RDW 12.9 (11.6-14.8) % Plt Count 222 (150-400) X10^3/uL Neut % (Auto) 54.4 (50-75) % Lymph % (Auto) 24.5 L (25-40) % Arroyo % (Auto) 12.0 (3-14) % Eos % (Auto) 7.8 H (2-4) % Baso % (Auto) 1.3 (0-2) % Neut # (Auto) 2600 (8922-3799) /uL Lymph # (Auto) 1200 (5726-8720) /uL Arroyo # (Auto) 600 (0-900) /uL Eos # (Auto) 400 (0-450) /uL Baso # (Auto) 100 (0-100) /uL Sodium 137 (137-145) mmol/L Potassium 3.8 (3.4-5.1) mmol/L Chloride 100 (98-107) mmol/L Carbon Dioxide 29 (22-32) mmol/L BUN 14 (9-20) mg/dL Creatinine 0.73 (0.66-1.25) mg/dL Estimated GFR > 60 (>60) mL/min BUN/Creatinine Ratio 19.2 (6-22) Glucose 106 (80-110) mg/dL Lactate (0.7-2.1) mmol/L Calcium 9.0 (8.4-10.2) mg/dL Magnesium 2.0 (1.6-2.3) mg/dL Total Bilirubin 0.5 (0.2-1.3) mg/dL AST 33 (17-59) IU/L ALT 29 (<50) IU/L Alkaline Phosphatase 78 (38-126) U/L Total Creatine Kinase 212 H (55-170) U/L CK-MB (CK-2) 1.32 (<2.37) ng/mL CK-MB (CK-2) Rel Index 0.6 L (1.5-5.0) % Troponin I < 0.012 (0.01-0.034) ng/mL Total Protein 7.5 (6.3-8.2) g/dL Albumin 4.2 (3.5-5.0) g/dL Globulin 3.3 (1.7-4.1) g/dL Albumin/Globulin Ratio 1.3 (1.0-2.8) Lipase 72 (23-300) U/L Procalcitonin (<0.5) ng/mL SARS-CoV-2 (PCR) Negative (Negative) 09/16/22 09/16/22 Range/Units 13:00 14:32 WBC (4.5-11.0) X10^3/uL RBC (4.5-5.9) X10^6/uL Hgb (13.5-17.5) g/dL Hct (41-53) % MCV (80-100) fL MCH (26-34) PG MCHC (30-36) % RDW (11.6-14.8) % Plt Count (150-400) X10^3/uL Neut % (Auto) (50-75) % Lymph % (Auto) (25-40) % Arroyo % (Auto) (3-14) % Eos % (Auto) (2-4) % Baso % (Auto) (0-2) % Neut # (Auto) (9590-3442) /uL Lymph # (Auto) (1376-7476) /uL Arroyo # (Auto) (0-900) /uL Eos # (Auto) (0-450) /uL Baso # (Auto) (0-100) /uL Sodium (137-145) mmol/L Potassium (3.4-5.1) mmol/L Chloride (98-107) mmol/L Carbon Dioxide (22-32) mmol/L BUN (9-20) mg/dL Creatinine (0.66-1.25) mg/dL Estimated GFR (>60) mL/min BUN/Creatinine Ratio (6-22) Glucose (80-110) mg/dL Lactate 0.9 (0.7-2.1) mmol/L Calcium (8.4-10.2) mg/dL Magnesium (1.6-2.3) mg/dL Total Bilirubin (0.2-1.3) mg/dL AST (17-59) IU/L ALT (<50) IU/L Alkaline Phosphatase (38-126) U/L Total Creatine Kinase (55-170) U/L CK-MB (CK-2) (<2.37) ng/mL CK-MB (CK-2) Rel Index (1.5-5.0) % Troponin I (0.01-0.034) ng/mL Total Protein (6.3-8.2) g/dL Albumin (3.5-5.0) g/dL Globulin (1.7-4.1) g/dL Albumin/Globulin Ratio (1.0-2.8) Lipase (23-300) U/L Procalcitonin 0.05 (<0.5) ng/mL SARS-CoV-2 (PCR) (Negative) ECG Data Attestation: I personally reviewed and interpreted this ECG as follows: Prior ECG tracings: available for review Interpretation: Sinus rhythm rate of 70 VA 152 QRS 80 QTC of 405. Sinus rhythm low-voltage QRS, Q-wave in 3 and AVF. Patient has prior from 03/02/2022 which appears similar. Discharge Plan Departure Patient Disposition: Home Clinical Impression: Cough, Chest congestion, Bronchitis Instructions: DI for Chronic Bronchitis, DI for Cough -- Adult Activity Restrictions/Additional Instructions: *You have been diagnosed with cough and chest congestion secondary to suspected exacerbation of bronchitis. Your labs and diagnostic tests were negative for any urgent emergent concerns. I have ordered steroids to help with the information you having your lungs and some medicine to help with your cough. Please return to the emergency room for any emergent concerns arise. [ ] *What to do: *Please continue to take your regular medications as directed. [x] New medication prescriptions sent to your pharmacy: [ ] [ ] New medication written as a paper prescription [ ] No new medications given *Please follow up with your primary care provider in 2-3 days, call for an appointment. Let them know you were seen in the Emergency Department and that we ask that you be seen in follow up. We will electronically transmit a record of today's note if your PCP is in our system *If you do not have a primary care provider please contact the [facility] Resource line at [phone]. They will ask some questions about your medical history and help get you set up with a doctor in the community. *Return to Emergency Department if you should have any new, worsening or concerning symptoms, such as [fever greater than 101 F, shaking chills, worsening pain, persistent vomiting or other bothersome symptoms] Prescriptions: New benzonatate 100 mg capsule 100 mg PO BID PRN (Reason: cough) Qty: 14 0RF prednisone 5 mg tablet,delayed release (DR/EC) 5 mg PO DAILY Qty: 15 0RF Rx Instructions: Day 1: 10 mg PO before breakfast, 5 mg after lunch and after dinner, and 10 mg at bedtime Day 2: 5 mg PO before breakfast, after lunch, and after dinner and 10 mg at bedtime Day 3: 5 mg PO before breakfast, after lunch, after dinner, and at bedtime Day 4: 5 mg PO before breakfast, after lunch, and at bedtime Day 5: 5 mg PO before breakfast and at bedtime Day 6: 5 mg PO before breakfast No Action amlodipine 5 mg Tablet 5 mg PO DAILY lisinopril 10 mg Tablet 10 mg PO DAILY hydrochlorothiazide 25 mg Tablet 25 mg PO DAILY albuterol sulfate 90 mcg/actuation Hfa Aerosol Inhaler 2 puff INHALATION Q4-6H PRN (Reason: COPD) finasteride 5 mg Tablet 5 mg PO DAILY aspirin 81 mg tablet,delayed release (DR/EC) 81 mg PO DAILY Label Comments: ASA on hold r/t upcoming spinal injection. omeprazole 20 mg capsule,delayed release(DR/EC) 20 mg PO DAILY loratadine 10 mg tablet 10 mg PO DAILY montelukast [Singulair] 10 mg Tablet 10 mg PO QPM albuterol sulfate [ProAir HFA] 90 mcg/actuation HFA aerosol inhaler 2 inh inhalation QID Qty: 6.7 0RF ipratropium bromide 17 mcg/actuation HFA aerosol inhaler 1 puff inhalation QID Qty: 12.9 0RF naproxen [Naprosyn] 500 mg tablet 500 mg PO Q12H PRN (Reason: pain) Qty: 30 0RF Rx Instructions: administer with food or milk Visit Report Forms: Patient Portal/API <Asmita Mata DO - Last Filed: 09/23/22 04:38> Cosign ED Attending Costinyature Attestation: I was immediately available in the department for consultation. Documentation has been reviewed.
[2022-09-16 14:47] LABS: Lactate (Lactic Acid) 0.9 mmol/L (0.7-2.1)
[2022-09-16] MEDS: BENZONATATE 100 MG CAPSULE PO (15:05)
[2022-09-16] MEDS: methylPREDNISolone 125 MG/2 ML VIAL IV (15:05)
[2022-09-16] MEDS: SODIUM CHLORIDE 0.9% 1,000 ML 1000 ML IV (15:10)
[2022-09-16] MEDS: ALBUTEROL/IPRATROPIUM 3 ML AMPUL INH (15:28)
--- NOTE | 2022-09-16 15:50 | PC.NURSE ---
pt states not sure but this smoke in the air last week may have made hime feel worse.
[2022-09-16 16:19] LABS: Procalcitonin 0.05 ng/mL (<0.5)
== END 2022-09-16 15:56 | disposition home or self-care (01) ==
PROVIDERS: Emergency Medicine; Emergency Provider Physician Assistant
DX: J40 Bronchitis, not specified as acute or chronic (principal); R05.9 Cough, unspecified; R09.89 Other specified symptoms and signs involving the circulatory and respiratory systems; J02.9 Acute pharyngitis, unspecified; Z20.822 Contact with and (suspected) exposure to COVID-19
CPT/HCPCS: 36415; 71045; 80053; 82550; 82553; 83605; 83690; 83735; 84145; 84484; 85025; 87635; 93005; 94640; 96361; 96374; 99284; C9803; J2930

== ENCOUNTER 2023-11-22 09:22 | Emergency (ER) | payer MEDICARE, OTHER, SELFPAY ==
[2023-11-22] VITALS (13 sets, daily range): BP systolic 127–168; BP diastolic 63–78; PULSE 61–94; RESP 15–36; TEMP 36.4; O2SAT 92–94; BMI 34.6
--- NOTE | 2023-11-22 09:46 | DI.RAD.S_ITS ---
PROCEDURE: XR CHEST 1V INDICATIONS: cough TECHNIQUE: One view of the chest was acquired. COMPARISON: [facility], CR, XR CHEST 1V, 09/16/2022, 13:14. FINDINGS: Surgical changes and devices: Partially visualized cervical spine hardware a history [id number] intact sternotomy wires aortic arch is calcified, indicating atherosclerosis. The. Lungs and pleura: Bibasilar linear atelectasis/scar. Lungs are otherwise clear. No pleural effusions or pneumothorax. Mediastinum: Mediastinal contours appear normal. Heart size is normal. Bones and chest wall: No suspicious bony lesions. Overlying soft tissues appear unremarkable. IMPRESSION: No acute cardiopulmonary process. Dictated by: Paola Kelly M.D. on 11/22/2023 at 10:04 Approved by: Paola Kelly M.D. on 11/22/2023 at 10:06
[2023-11-22 10:34] LABS: Add Manual Diff / Slide Review NO; Basophils Absolute Auto 0 /uL (0-100); Basophils Percent Auto 0.5 % (0-2); Eosinophils Absolute Auto 300 /uL (0-450); Eosinophils Percent Auto 4.3 % (2-4); Hemoglobin 13.2 g/dL (13.5-17.5); Lymphocytes Absolute Auto 1100 /uL (1100-4500); Lymphocytes Percent Auto 13.4 % (25-40); Mean Corpuscular HGB Conc 33.8 % (30-36); Mean Corpuscular Hemoglobin 31.5 PG (26-34); Monocytes Absolute Auto 900 /uL (0-900); Monocytes Percent Auto 10.9 % (3-14); Neutrophils Absolute Auto 5700 /uL (1500-7000); Neutrophils Percent Auto 70.9 % (50-75); Platelet Count 209 X10^3/uL (150-400); Red Cell Distribution Width 13.2 % (11.6-14.8); White Blood Cell Count 8.1 X10^3/uL (4.5-11.0)
[2023-11-22 10:44] LABS: Alanine Aminotransferase 25 IU/L (<50); Albumin Globulin Ratio 1.3 (1.0-2.8); Alkaline Phosphatase 59 U/L (38-126); Aspartate Aminotransferase 29 IU/L (17-59); BUN Creatinine Ratio 21.5 (6-22); Bilirubin Total 0.7 mg/dL (0.2-1.3); Blood Urea Nitrogen 14 mg/dL (9-20); Carbon Dioxide 30 mmol/L (22-32); Chloride 102 mmol/L (98-107); Estimated Glomerular Filt Rate > 60 mL/min (>60); Globulin 3.2 g/dL (1.7-4.1); Glucose 97 mg/dL (80-110); HEMOLYSIS 29 (0-50); Potassium 3.9 mmol/L (3.4-5.1); Sodium 136 mmol/L (137-145); Total Protein 7.2 g/dL (6.3-8.2)
[2023-11-22 10:56] LABS: NT-proBNP (BNP-Adult 18+) 29 pg/mL (<125); Troponin I < 0.012 ng/mL (0.01-0.034)
--- NOTE | 2023-11-22 13:43 | ED_ITS ---
HPI - General Adult General Chief complaint: Upper Respiratory Symptoms Stated complaint: Cough,congested Time Seen by Provider: 11/22/23 09:45 Source: patient and family Mode of arrival: Ambulatory History of Present Illness HPI narrative: 73 yo gentleman with COPD, hypertension, GERD, presents complaining of increasing dyspnea with difficulty lying flat over the last 48 hours. He is had an increasingly productive cough. He has had no fevers, chills or body aches. No headaches or palpitations. No lower extremity edema. 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 He states that typically when he begins coughing like this he ends up with a course of prednisone. He has been using his albuterol inhaler more frequently. He has a fluticasone nasal steroid that in the past has been helpful with the chronic sinus drainage he has not been using it recently. He is never tried nasal saline lavage. He is not complaining of chest pain or palpitations. No nausea, vomiting or diarrhea. Related Data Home Medications Medication Instructions Recorded Confirmed albuterol sulfate 90 mcg/actuation 2 puff inhalation Q4-6H PRN COPD 03/25/18 06/25/19 aerosol inhaler amlodipine 5 mg tablet 5 mg PO DAILY 03/25/18 07/02/19 finasteride 5 mg tablet 5 mg PO DAILY 03/25/18 06/25/19 hydrochlorothiazide 25 mg tablet 25 mg PO DAILY 03/25/18 07/02/19 lisinopril 10 mg tablet 10 mg PO DAILY 03/25/18 06/25/19 aspirin 81 mg tablet,delayed 81 mg PO DAILY 05/05/18 06/25/19 release loratadine 10 mg tablet 10 mg PO DAILY 05/05/18 06/25/19 omeprazole 20 mg capsule,delayed 20 mg PO DAILY 05/05/18 06/25/19 release montelukast 10 mg tablet 10 mg PO QPM 06/25/19 06/25/19 (Singulair) Previous Rx's Medication Instructions Recorded naproxen 500 mg tablet (Naprosyn) 500 mg PO Q12H PRN pain #30 tabs 05/17/18 albuterol sulfate 90 mcg/actuation 2 inh inhalation QID #6.7 grams 03/02/22 aerosol inhaler (ProAir HFA) ipratropium bromide 17 1 puff inhalation QID #12.9 grams 03/02/22 mcg/actuation HFA aerosol inhaler benzonatate 100 mg capsule 100 mg PO BID PRN cough #14 caps 09/16/22 prednisone 5 mg tablet,delayed 5 mg PO DAILY Exacerbation of 09/16/22 release Bronchitis #15 tabs azithromycin 250 mg tablet See Rx Instructions PO .COMPLEX #6 11/22/23 tabs prednisone 20 mg tablet 20 mg PO DAILY #5 tabs 11/22/23 Allergies Allergy/AdvReac Type Severity Reaction Status Date / Time No Known Drug Allergies Allergy Verified 11/22/23 09:40 Review of Systems Review of Systems Narrative: Pertinent positive and negative findings as per HPI Patient History Medical History Upper respiratory infection Pneumonia SAMUEL (obstructive sleep apnea) Pulmonary embolism COPD (chronic obstructive pulmonary disease) HTN (hypertension) Surgical History Hx of tonsillectomy H/O cervical spine surgery Hx of total knee arthroplasty Social History household members: spouse Smoking Status: Former smoker Smoking Status: Former smoker tobacco type: cigarettes alcohol intake frequency: 0-2 drinks per day Substance Use Type: does not use Exam Initial Vital Signs Initial Vital Signs: Vital Signs Temperature 97.5 F L 11/22/23 09:35 Pulse Rate 83 11/22/23 09:35 Respiratory Rate 20 11/22/23 09:35 Blood Pressure 168/69 H 11/22/23 09:35 Pulse Oximetry 93 11/22/23 09:35 Oxygen Delivery Method Room Air 11/22/23 09:35 General: Healthy appearing, in no acute distress. Able to give a complete and coherent history. Well-nourished well-developed HEENT: Moist mucous membranes, normal sclera with reactive pupils, Neck: No JVD, supple Respiratory: Lungs with bibasilar crackles and left post rhonchi Cardiac: Regular rate and rhythm no murmurs no bruits Abdomen: Soft, nontender, good bowel tones, no flank pain Skin: Warm and dry, no rashes Neurologic: Grossly neurologically intact with no obvious asymmetries or abnormalities Extremities: No trauma, well perfused Psych: Cooperative, appropriate insight and affect Course Orders Ordered: ED Orders 11/22/23 09:46 XR chest 1V Stat 11/22/23 10:17 EKG-12 Lead Stat 11/22/23 10:20 Complete Blood Count AUTO DIFF Stat Comprehensive Metabolic Panel Stat NT-proBNP (BNP-Adult 18+) Stat Troponin I Stat Vital Signs Vital signs: Vital Signs - 8 hr 11/22/23 09:35 11/22/23 10:03 11/22/23 10:25 Temperature 97.5 F L Pulse Rate 83 94 H Respiratory Rate 20 19 Blood Pressure 168/69 H 137/72 Pulse Oximetry 93 93 Oxygen Delivery Method Room Air 11/22/23 10:25 11/22/23 10:30 11/22/23 10:30 Temperature Pulse Rate 75 78 Respiratory Rate 18 20 Blood Pressure 133/63 Pulse Oximetry 94 94 Oxygen Delivery Method Room Air 11/22/23 11:00 11/22/23 11:00 11/22/23 11:30 Temperature Pulse Rate 74 Respiratory Rate 16 Blood Pressure 134/73 128/74 Pulse Oximetry 93 Oxygen Delivery Method Room Air 11/22/23 11:30 11/22/23 12:00 11/22/23 12:01 Temperature Pulse Rate 75 75 70 Respiratory Rate 15 20 18 Blood Pressure Pulse Oximetry 92 93 93 Oxygen Delivery Method 11/22/23 12:01 11/22/23 12:30 11/22/23 12:30 Temperature Pulse Rate 61 Respiratory Rate 17 Blood Pressure 141/74 H 134/67 Pulse Oximetry 93 Oxygen Delivery Method Medical Decision Making Lab Data 11/22/23 10:20 11/22/23 10:20 Labs: Lab Results 11/22/23 Range/Units 10:20 WBC 8.1 (4.5-11.0) X10^3/uL RBC 4.20 L (4.5-5.9) X10^6/uL Hgb 13.2 L (13.5-17.5) g/dL Hct 39.0 L (41-53) % MCV 93.0 (80-100) fL MCH 31.5 (26-34) PG MCHC 33.8 (30-36) % RDW 13.2 (11.6-14.8) % Plt Count 209 (150-400) X10^3/uL Neut % (Auto) 70.9 (50-75) % Lymph % (Auto) 13.4 L (25-40) % Morton % (Auto) 10.9 (3-14) % Eos % (Auto) 4.3 H (2-4) % Baso % (Auto) 0.5 (0-2) % Neut # (Auto) 5700 (6524-5159) /uL Lymph # (Auto) 1100 (1935-0540) /uL Morton # (Auto) 900 (0-900) /uL Eos # (Auto) 300 (0-450) /uL Baso # (Auto) 0 (0-100) /uL Sodium 136 L (137-145) mmol/L Potassium 3.9 (3.4-5.1) mmol/L Chloride 102 (98-107) mmol/L Carbon Dioxide 30 (22-32) mmol/L BUN 14 (9-20) mg/dL Creatinine 0.65 L (0.66-1.25) mg/dL Estimated GFR > 60 (>60) mL/min BUN/Creatinine Ratio 21.5 (6-22) Glucose 97 (80-110) mg/dL Calcium 9.0 (8.4-10.2) mg/dL Total Bilirubin 0.7 (0.2-1.3) mg/dL AST 29 (17-59) IU/L ALT 25 (<50) IU/L Alkaline Phosphatase 59 (38-126) U/L Troponin I < 0.012 (0.01-0.034) ng/mL NT-Pro-B Natriuret Pep 29 (<125) pg/mL Total Protein 7.2 (6.3-8.2) g/dL Albumin 4.0 (3.5-5.0) g/dL Globulin 3.2 (1.7-4.1) g/dL Albumin/Globulin Ratio 1.3 (1.0-2.8) MDM Narrative Medical decision making narrative: CC: Increasingly productive cough Complicating co-morbidities: Chronic sinus drainage, COPD, hypertension Data collected from: patient, Medical records reviewed: ER notes pertaining to chest wall muscle strain, pleuritic chest pain, bronchitis and COPD exacerbation are all reviewed Differential considered: Congestive heart failure, COPD exacerbation, pneumonia, postnasal drip with chronic cough Exam documented above, pertinent findings include: Bibasilar crackles with chronic lower extremity edema, rhonchi in the left lower lung gaspar. Remainder of exam is benign Lab Test results independently reviewed as above. Pertinent findings: CBC is unremarkable with white blood cell count at 8.1 Chemistries are reassuring Initial troponin is undetectable BNP is undetectable Independently reviewed EKG: Sinus rhythm at a rate of 75, normal intervals, normal axis, no acute ischemic changes Imaging studies independently reviewed: Chest x-ray concerning for developing left lower lobe infiltrate. Radiology interpretation is unremarkable lung gaspar Discussion: 73 year old gentleman with a clinical left lower lobe pneumonia causing an acute COPD exacerbation with chronic sinus drainage. There was no evidence of sepsis, acute coronary syndrome or congestive heart failure. In the setting of COPD am going to treat his left lower lobe pneumonia with azithromycin. We discussed going back to fluticasone to help with the chronic sinus drainage and I strongly recommended nasal saline washes. Will also place him on prednisone for 5 days to help with the acute COPD exacerbation and discussed use of his albuterol inhaler with spacer that he has a available at home. He understands reasons for return to the emergency department. Questions are answered and he is safe for discharge Discharge Plan Departure Patient Disposition: Home Clinical Impression: Acute exacerbation of chronic obstructive pulmonary disease, PND (post-nasal drip) Pneumonia Qualifiers: Pneumonia type: due to unspecified organism Laterality: left Lung location: l ower lobe of lung Qualified Code(s): J18.9 - Pneumonia, unspecified organism Instructions: DI for Pneumonia -- Adult Activity Restrictions/Additional Instructions: Thank you for coming in today Based on your clinical exam you are developing a pneumonia in your left lower lobe. I have given you a prescription for azithromycin please complete all 5 days according to the prescription directions The pneumonia is causing the exacerbation of your COPD. I have given you a prescription for prednisone, please complete all 5 days It is okay to use your albuterol metered-dose inhaler with a spacer 2 puffs up to 4 times a day as needed for cough or wheezing For your postnasal drip I would recommend a sinus wash treatment. There are number of sinus wash techniques and devices available in pharmacies. Please do give it a try, you may find that it significantly helpful. After you have done the sinus rinse than you need to use the fluticasone nasal spray 1 spray each nostril to help with the postnasal drip All prescriptions were electronically transmitted to [facility] in [place] If you find that you are getting worse or develop any new symptoms, please feel free to return to the emergency department for further evaluation. Prescriptions: New azithromycin 250 mg tablet See Rx Instructions .ROUTE .COMPLEX Qty: 6 0RF Rx Instructions: For 250 mg dose pack: take 500 mg today (day 1), then 250 mg for 4 days (days 2-5) prednisone 20 mg tablet 20 mg PO DAILY Qty: 5 0RF No Action amlodipine 5 mg Tablet 5 mg PO DAILY lisinopril 10 mg Tablet 10 mg PO DAILY hydrochlorothiazide 25 mg Tablet 25 mg PO DAILY albuterol sulfate 90 mcg/actuation Hfa Aerosol Inhaler 2 puff INHALATION Q4-6H PRN (Reason: COPD) finasteride 5 mg Tablet 5 mg PO DAILY aspirin 81 mg tablet,delayed release (DR/EC) 81 mg PO DAILY Patient Comments: ASA on hold r/t upcoming spinal injection. omeprazole 20 mg capsule,delayed release(DR/EC) 20 mg PO DAILY loratadine 10 mg tablet 10 mg PO DAILY montelukast [Singulair] 10 mg Tablet 10 mg PO QPM albuterol sulfate [ProAir HFA] 90 mcg/actuation HFA aerosol inhaler 2 inh inhalation QID Qty: 6.7 0RF ipratropium bromide 17 mcg/actuation HFA aerosol inhaler 1 puff inhalation QID Qty: 12.9 0RF benzonatate 100 mg capsule 100 mg PO BID PRN (Reason: cough) Qty: 14 0RF prednisone 5 mg tablet,delayed release (DR/EC) 5 mg PO DAILY Qty: 15 0RF Rx Instructions: Day 1: 10 mg PO before breakfast, 5 mg after lunch and after dinner, and 10 mg at bedtime Day 2: 5 mg PO before breakfast, after lunch, and after dinner and 10 mg at bedtime Day 3: 5 mg PO before breakfast, after lunch, after dinner, and at bedtime Day 4: 5 mg PO before breakfast, after lunch, and at bedtime Day 5: 5 mg PO before breakfast and at bedtime Day 6: 5 mg PO before breakfast naproxen [Naprosyn] 500 mg tablet 500 mg PO Q12H PRN (Reason: pain) Qty: 30 0RF Rx Instructions: administer with food or milk Referrals: Rocky Pedersen DO [Primary Care Provider] - Stand Alone Forms: Patient Portal/API
[2023-11-22] MEDS: methylPREDNISolone 125 MG/2 ML VIAL IV (14:18)
== END 2023-11-22 14:35 | disposition home or self-care (01) ==
PROVIDERS: Emergency Provider Emergency Medicine; PCP Family Medicine
DX: J18.9 Pneumonia, unspecified organism (principal); R09.82 Postnasal drip; J44.1 Chronic obstructive pulmonary disease with (acute) exacerbation; Z79.899 Other long term (current) drug therapy
CPT/HCPCS: 36415; 71045; 80053; 83880; 84484; 85025; 93005; 96374; 99284; J2930

== ENCOUNTER → 2024-02-27 14:41 | Outpatient (CLI) | payer MEDICARE, OTHER, SELFPAY ==
--- NOTE | 2024-02-27 14:45 | DI.RAD.S_ITS ---
PROCEDURE: XR CHEST 2V INDICATIONS: Respiratory failure TECHNIQUE: 2 views of the chest were acquired. COMPARISON: CT, CT ANGIO CHEST PE PROTOCOL, 05/05/2018, 14:06. [facility], CR, XR CHEST 1V, 11/22/2023, 9:47. [facility], CR, XR CHEST 1V, 09/16/2022, 13:14. [facility], CR, XR CHEST 2V, 03/02/2022, 16:40. FINDINGS: Surgical changes and devices: None. Lungs and pleura: There is a small nodular density in the right lower lung zone. Bibasilar streaky densities are most likely scars and atelectasis. No pleural effusions or pneumothorax. Mediastinum: Mediastinal contours are normal. Heart size is normal. Bones and chest wall: No suspicious bony abnormalities. Soft tissues appear unremarkable. IMPRESSION: 1. A small nodule in the right lower lung zone. Recommend chest CT for follow-up evaluation. 2. Bibasilar scars and atelectasis. Dictated by: Gabe Steward M.D. on 02/27/2024 at 16:54 Approved by: Gabe Steward M.D. on 02/27/2024 at 16:56
== END ==
PROVIDERS: PCP Family Medicine; Referring Provider Internal Medicine Sleep Medicine; Visit Provider Internal Medicine Sleep Medicine
DX: J96.01 Acute respiratory failure with hypoxia (principal); J41.0 Simple chronic bronchitis; J98.11 Atelectasis; J98.4 Other disorders of lung; R91.1 Solitary pulmonary nodule; G47.33 Obstructive sleep apnea (adult) (pediatric); J32.9 Chronic sinusitis, unspecified; F17.211 Nicotine dependence, cigarettes, in remission
CPT/HCPCS: 71046; 99214

== ENCOUNTER → 2024-03-21 13:50 | Outpatient (CLI) | payer MEDICARE, OTHER, SELFPAY ==
--- NOTE | 2024-03-21 13:51 | DI.CT.S_ITS ---
PROCEDURE: CT CHEST WO CON INDICATIONS: pulmonary nodule seen on CXR TECHNIQUE: Noncontrast 2.0-2.5 mm thick sections acquired from the pulmonary apices to the posterior costophrenic angles. 7 mm thick axial MIP and 5 mm coronal and sagittal reformats were then acquired. For radiation dose reduction, the following was used: automated exposure control, adjustment of mA and/or kV according to patient size. COMPARISON: [facility], CT, CT ANGIO CHEST PE PROTOCOL, 05/05/2018, 14:06. [facility], CR, XR CHEST 2V, 02/27/2024, 14:02. FINDINGS: Image quality: Diagnostic. Lower Neck: No enlarged lymph nodes. Thyroid: No thyroid nodules which require sonographic follow up, per consensus guidelines. Axillae: No enlarged lymph nodes. Chest Wall: Unremarkable. 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 Vacuum disc phenomenon and marked osteophytosis is present at T6-7. Lungs and Pleura: Consolidative radiopacities are present in the bilateral lung bases. Some volume loss is associated with the radiopacities. These findings are new when compared with the prior CT dated May 05, 2018. Multiple satellite nodules are present surrounding these consolidative radiopacities bilaterally. No pleural effusion or pneumothorax. Heart: Heart size is normal. No pericardial effusion. Thoracic Vessels: The aorta and pulmonary arteries demonstrate normal size. Mediastinum and Svitlana: No enlarged lymph nodes. Esophagus: No wall thickening. No hiatal hernia. Upper Abdomen: Visualized upper abdomen solid organs and bowel loops appear normal. IMPRESSION: 1. Consolidative radiopacities within the dependent lung bases bilaterally. It is unclear whether these represent acute airspace opacities in the setting of aspiration or pneumonia, pulmonary scar in the setting of rounded atelectasis and volume loss, or multifocal neoplasm. Short interval follow-up is recommended. If these radiopacities persist on follow-up, CT-guided biopsy or PET-CT could be considered to evaluate for increased metabolic activity in the setting of neoplasm. Fleischner Society criteria for SOLID lung nodule followup. Nodule size (mm)Low-risk patientHigh-risk patient<6 (single or multiple)No routine followup.Optional CT at 12 months. 6-8 (single or multiple)CT at 6-12 months, then optional CT at 18-24 mo.CT at 6-12 months, then CT at 18-24 months. >8 (single)CT at 3 months, PET-CT, or biopsy. Same as for low-risk pts. >8 (multiple)CT at 3-6 months, then optional CT at 18-24 mo.CT at 3-6 months, then CT at 18-24 months. Fleischner Society criteria for SUB-SOLID lung nodule followup. Solitary pure ground-glass nodules<6 mm (ground glass or part solid)No followup needed. 6 mm or larger (ground glass)CT at 6-12 months to confirm persistence, then CT every 2 years until 5 years.6 mm or larger (part solid)CT at 3-6 months to confirm persistence, then annual CT until 5 years if unchanged and solid component remains <6 mm. Multiple sub-solid nodules<6 mmCT at 3-6 months, then CT consider at 2 & 4 years for high risk patients. [address] at 3-6 months. Subsequent management based on most suspicious lesions. Recommendations do not apply to lung cancer screening, patients with immunosuppression, or patients with known primary cancer. Dictated by: Yoko Shepherd M.D. on 03/21/2024 at 20:38 Approved by: Yoko Shepherd M.D. on 03/21/2024 at 20:44
== END ==
PROVIDERS: PCP Family Medicine; Referring Provider Internal Medicine Sleep Medicine; Visit Provider Internal Medicine Sleep Medicine
DX: R91.8 Other nonspecific abnormal finding of lung field (principal)
CPT/HCPCS: 71250

== ENCOUNTER → 2024-04-07 09:43 | Outpatient (CLI) | payer MEDICARE, OTHER, SELFPAY | LOC: RESP 09:44 | PROVIDERS: PCP Family Medicine; Referring Provider Internal Medicine Sleep Medicine; Visit Provider Internal Medicine Sleep Medicine | DX: J44.9 Chronic obstructive pulmonary disease, unspecified (principal); F17.210 Nicotine dependence, cigarettes, uncomplicated; J96.01 Acute respiratory failure with hypoxia | CPT/HCPCS: 94060; 94726; 94729 ==

== ENCOUNTER → 2024-06-25 14:02 | Outpatient (CLI) | payer MEDICARE, OTHER, SELFPAY ==
--- NOTE | 2024-06-25 14:03 | DI.CT.S_ITS ---
PROCEDURE: CT CHEST WO CON INDICATIONS: Pulmonary nodules TECHNIQUE: Noncontrast 5 mm thick sections acquired from the pulmonary apices to the posterior costophrenic angles. 1 mm lung window, 5 mm thick coronal and sagittal and 7 mm axial MIP reformats were then acquired. For radiation dose reduction, the following was used: automated exposure control, adjustment of mA and/or kV according to patient size. COMPARISON: [facility], CR, XR CHEST 2V, 02/27/2024, 14:02. [facility], CT, CT CHEST WO CON, 03/21/2024, 13:58. FINDINGS: Image quality: There is artifact associated with the metallic hardware. Artifact from the metallic hardware is reduced by metal reconstruction algorithm. Lower Neck: No enlarged lymph nodes. Thyroid: No thyroid nodules which require sonographic follow up, per consensus guidelines. Axillae: No enlarged lymph nodes. Chest Wall: Unremarkable. Bones: Cervical thoracic fixation hardware is partially seen. Multiple levels of bridging endplate osteophytes can be seen. There is overall osteopenia seen throughout the mid thoracic spine. Accentuated thoracic kyphosis is seen. Lungs and Pleura: Multiple pulmonary nodules are seen, with the lung base nodules clearly improved compared to the prior examination. There is a new pulmonary nodule seen within the right upper lobe, as on series 4, image 157, measuring 9 x 8 mm in greatest axial dimension. Mild areas of dependent atelectasis can be seen. No focal infiltrates are seen. No pneumothorax or pleural effusions are seen. Heart: Heart size is normal. No pericardial effusion. Thoracic Vessels: The aorta and pulmonary arteries demonstrate normal size. Mediastinum and Svitlana: No enlarged lymph nodes. Esophagus: No wall thickening. No hiatal hernia. Upper Abdomen: Visualized upper abdomen solid organs and bowel loops appear normal. IMPRESSION: The lung base nodules have largely resolved since the prior examination. There is a new 9 mm nodule seen within the right upper lobe, most likely representing an inflammatory or infectious nodule, given its rapid appearance since 03/21/2024. - Please consider a follow-up [address] Abnormal bones. Please consider underlying inflammatory disorder, such as ankylosing spondylitis. Additional findings: Cervical thoracic fixation hardware Dictated by: Christiano Lovett M.D. on 06/26/2024 at 9:36 Approved by: Christiano Lovett M.D. on 06/26/2024 at 9:45
== END ==
PROVIDERS: PCP Family Medicine; Referring Provider Internal Medicine Sleep Medicine; Visit Provider Internal Medicine Sleep Medicine
DX: J44.9 Chronic obstructive pulmonary disease, unspecified (principal); R91.8 Other nonspecific abnormal finding of lung field; M89.9 Disorder of bone, unspecified; Z98.1 Arthrodesis status
CPT/HCPCS: 71250

== ENCOUNTER 2024-08-17 14:15 | Outpatient (RCR) | payer MEDICARE, OTHER, SELFPAY | END 2024-08-17 16:15 | LOC: PUL 14:15 | PROVIDERS: PCP Family Medicine; Referring Provider Internal Medicine Sleep Medicine; Visit Provider Internal Medicine Sleep Medicine | DX: J44.9 Chronic obstructive pulmonary disease, unspecified (principal) | CPT/HCPCS: 94625; 94626 ==

== ENCOUNTER → 2024-11-05 14:04 | Outpatient (CLI) | payer MEDICARE, OTHER, SELFPAY ==
--- NOTE | 2024-11-05 14:05 | DI.CT.S_ITS ---
PROCEDURE: CT CHEST WO CON INDICATIONS: Solitary pulmonary nodule TECHNIQUE: Noncontrast 5 mm thick sections acquired from the pulmonary apices to the posterior costophrenic angles. 1 mm lung window, 5 mm thick coronal and sagittal and 7 mm axial MIP reformats were then acquired. For radiation dose reduction, the following was used: automated exposure control, adjustment of mA and/or kV according to patient size. COMPARISON: [facility], CT, CT CHEST WO CON, 06/25/2024, 14:07. FINDINGS: Image quality: Diagnostic. Lower Neck: No enlarged lymph nodes. Thyroid: No thyroid nodules which require sonographic follow up, per consensus guidelines. Axillae: No enlarged lymph nodes. Chest Wall: Unremarkable. Bones: Degenerative changes of the spine. Partially visualized ACDF hardware. Multilevel bridging osteophytes, may represent ankylosing spondylitis. Chronic ununited left distal clavicle fracture. Old left-sided rib fractures. Lungs and Pleura: No pneumothorax or pleural effusions. Previous right upper lobe nodules appear to have resolved. There is mild residual ground-glass in the region of the nodule, may represent scarring. Stable linear atelectasis versus scarring at the lung bases. Heart: Heart size is normal. Mild coronary artery calcifications. No pericardial effusion. Thoracic Vessels: The aorta and pulmonary arteries demonstrate normal size. Mild atherosclerotic calcifications. Mediastinum and Svitlana: No enlarged lymph nodes. Esophagus: No wall thickening. No hiatal hernia. Upper Abdomen: Visualized upper abdomen solid organs and bowel loops appear normal. IMPRESSION: Resolution of prior right upper lobe pulmonary nodules. Mild ground-glass/scarring in the region of one of the nodules. No new or enlarging pulmonary nodules. Additional findings are stable compared to prior exam, as described above. Dictated by: Kanu Burger M.D. on 11/05/2024 at 16:58 Approved by: Kanu Burger M.D. on 11/05/2024 at 17:03
== END ==
PROVIDERS: PCP Family Medicine; Referring Provider Student in an Organized Health Care Education/Training Program; Visit Provider Student in an Organized Health Care Education/Training Program
DX: R91.1 Solitary pulmonary nodule (principal); I25.10 Atherosclerotic heart disease of native coronary artery without angina pectoris; I70.0 Atherosclerosis of aorta; S42.032S Displaced fracture of lateral end of left clavicle, sequela; S22.32XS Fracture of one rib, left side, sequela; Z98.1 Arthrodesis status
CPT/HCPCS: 71250